=== PATIENT | male | born 1975 | race Caucasian/White ===

== ENCOUNTER 2016-11-04 07:53 | Day surgery (SDC) | payer BC ==
[2016-10-27 14:55] VITALS: BMI 23.7
--- NOTE | 2016-11-03 14:30 | HP ---
DATE OF ADMISSION: 11/04/2016 Vipul Rodriguez is a 41-year-old patient seen with progressive left knee pain. After having treatment options discussed, he elected to proceed with left knee arthroscopy. Consent was obtained. His past medical history is osteoarthritis. Past surgical history is left knee arthroscopy, right shoulder arthroscopy, herniorrhaphy. DAILY MEDICATIONS: Aleve. ALLERGIES: None known. SOCIAL HISTORY: Patient denies tobacco use. Physical evaluation of the left knee: His range of motion is -3/4 to 95. Tenderness along the medial and lateral joint lines. Positive medial Paulo's. There is pain on patellofemoral compression. Crepitus along the medial and patellofemoral compartment with compartments with range of motion. Ligaments stable. Hip rotation without pain. Distal neurovascular exam is intact. Radiographs of the left knee revealed moderate to severe medial and moderate patellofemoral compartment osteoarthritis. IMPRESSION: 1. Internal derangement of the left knee with meniscal tear. 2. Left knee osteoarthritis. PLAN: Left knee arthroscopy with partial meniscectomy and debridement.
[~2016-11-04 07:53] MED LIST: DEXAMETHASONE SOD PHOSPHATE 10 MG/ML 1 ML VIAL IV ONE; HYDROmorphone 1 MG/ML 1 ML SYRINGE IVP PRN; LACTATED RINGERS 1,000 ML IV SCH; MIDAZOLAM 2 MG/2 ML VIAL IV PRN; ONDANSETRON 4 MG/2 ML VIAL IVP ONE
[2016-11-04] MEDS ORDERED: LIDOCAINE 1% 20 ML VIAL (10MG/ML) FOR IV START INTRADERMA ONE (08:21)
[2016-11-04] MEDS ORDERED: ceFAZolin 1,000 MG VIAL ONE (09:04)
[2016-11-04] MEDS ORDERED: PHENYLEPHRINE-0.9% NACL SYG 1 MG/10 ML SYRINGE ONE (09:04)
[2016-11-04] MEDS ORDERED: SODIUM CHLORIDE 0.9% 100 ML BAG ONE (09:04)
[2016-11-04] MEDS ORDERED: PROPOFOL 10 MG/ML 20 ML VIAL IV ONE (09:04)
[2016-11-04] MEDS ORDERED: LIDOCAINE 1% INJ 10MG/ML (20 ML MDV) ONE (09:04)
[2016-11-04] MEDS ORDERED: MIDAZOLAM 2 MG/2 ML VIAL ONE (09:04)
[2016-11-04] MEDS ORDERED: SUCCINYLCHOLINE CHLORIDE 100 MG/5 ML SYR IV ONE (09:04)
[2016-11-04] MEDS ORDERED: fentaNYL (PF) 50 MCG/ML 2 ML AMP ONE (09:04)
[2016-11-04] MEDS: ceFAZolin 2 GM in SODIUM CHLORIDE 0.9% 100 ML IVPB ONE ×2 (09:10→09:15)
[2016-11-04] MEDS ORDERED: BUPIVACAIN-EPI 0.25%-1:200,000 30 ML VIAL INTRAARTIC ONE ×2 (09:32→09:55)
--- NOTE | 2016-11-04 10:11 | P.OP ---
Date of Procedure: 11/04/16 Preoperative Diagnosis: Internal derangement left knee Postoperative Diagnosis: 1. Tear medial lateral meniscus left knee 2. Grade 3/4 chondromalacia medial femoral condyle left knee 3. Grade 3/4 chondromalacia lateral femoral condyle left knee 4. Grade 4 chondromalacia patellofemoral compartment left knee 5. Reactive synovitis medial, lateral and suprapatellar compartments left knee Procedure(s) Performed: 1. Arthroscopic partial medial and lateral meniscectomy left knee 2. Arthroscopic chondroplasty medial femoral condyle left knee 3. Arthroscopic chondroplasty lateral femoral condyle left knee 4. Arthroscopic chondroplasty patellofemoral compartment left knee 5. Arthroscopic partial synovectomy medial, lateral and suprapatellar compartments left knee Anesthesia: RUSLANA Surgeon: Alvarado Mayen Estimated Blood Loss (ml): 15 Pathology: none sent Condition: stable Disposition: PACU Indications for Procedure: 41-year-old patient seen with progressive left knee pain. After having treatment options discussed, he elected to proceed with left knee arthroscopy. Operative Findings: See description of procedure Description of Procedure: Patient was taken to the operative suite. Patient underwent a general anesthetic by the department of anesthesia. Patient was given preoperative antibiotics. The left lower extremity was placed in a well-padded arthroscopic leg kelly. The left leg was prepped and draped in the normal sterile orthopedic fashion. A lateral parapatellar and suprapatellar incision was made. Trochars were inserted. Arthroscopy was initiated. Suprapatellar pouch revealed diffuse thick synovitis. The patellofemoral joint appeared to articulate congruently. There was grade 4 chondromalacia of both the femoral sulcus/ trochlea as well as the medial lateral facets of the patella. There osteochondral tears present as well.. The scope was guided into the medial gutter. No loose bodies or plica identified The scope was then guided into the medial compartment. A medial parapatellar incision was made. Trocar inserted followed by probe. Complex tear involving posterior horn and midbody of the medial meniscus. There was grade 3-4 chondromalacia changes the medial femoral condyle with osteochondral tears present. There were grade 3, changes of the tibial plateau present. Reactive synovitis is present. A partial medial meniscectomy was performed on a stable tissue. I performed a chondroplasty of the medial femoral condyle and tibial plateau down to stable tissue. I performed a partial synovectomy. The rigid residual meniscus and osteochondral surface appeared stable. We again noted upwards of grade 4 chondromalacia involving the medial compartment. Scope and probe were then guided into the intercondylar notch. I had a difficult time identifying the anterior cruciate ligament which I believe was absent. The posterior cruciate ligament was present but diminutive.. The scope and probe were then guided into lateral compartment. There was a radial tearing of the posterior horn and midbody lateral meniscus. There were grade 3-4, changes lateral femoral condyle. Grade 3, changes lateral tibial plateau. No loose bodies. Synovitis anteriorly. Partial lateral meniscectomy performed on a stable tissue. Chondroplasty lateral femoral condyle and tibial plateau down to stable tissue. Partial synovectomy performed on a stable tissue. The residual osteochondral surface and meniscus was found stable with again upwards of grade 3/4 chondromalacia of the lateral compartment. The scope was in guided back into the suprapatellar compartment. Motorize shaver was introduced and super patellar compartment. I debrided some piecemeal fragments of meniscus. I performed a chondroplasty of the patellofemoral joint. We again noted grade 4 chondromalacia changes of both sides. The residual surfaces were partial synovectomy. Shaver was removed. I took one more look on the entire knee, no residual debris. Instruments were now removed from the joint. The joint was infiltrated with .25% Marcaine. Steri-Strips were applied to the portal sites. Sterile dressings were applied. The patient was placed into a HELEN hose. No tourniquet was utilized. The patient was awakened, transferred to a bed and taken to recovery stable satisfactory condition.
[2016-11-04] MEDS: MEPERIDINE 50 MG/ML SYRINGE IVP ONE ×3 (10:18→11:30)
[2016-11-04 10:28] VITALS: TEMP 96.9
[2016-11-04 11:49] VITALS: RESP 18
[2016-11-04 12:16] VITALS: BP 105/73; PULSE 85
== END 2016-11-04 12:46 | disposition home or self-care (01) ==
LOC: OR 07:53
PROVIDERS: ATTEND Orthopaedic Surgery
DX: S83.242A Other tear of medial meniscus, current injury, left knee, initial encounter (principal); S83.282A Other tear of lateral meniscus, current injury, left knee, initial encounter; X58.XXXA Exposure to other specified factors, initial encounter; M22.42 Chondromalacia patellae, left knee; M17.12 Unilateral primary osteoarthritis, left knee; M65.862 Other synovitis and tenosynovitis, left lower leg; Z87.891 Personal history of nicotine dependence
CPT/HCPCS: 29880; J2250; J1100; J2175; J2405; J0690; J2001; J3010; J2370; J0330; J2704

== ENCOUNTER → 2017-03-16 | Outpatient (CLI) | payer BC ==
[2017-03-16 13:36] LABS: EKG EKG PERFORMED
[2017-03-16 13:46] LABS: Basophils # (A) 0.1 k/uL (0-0.2); Basophils % (A) 1 %; CH 29.6; CHCM 34.1; Eosinophils # (A) 0.2 k/uL (0-0.7); Eosinophils % (A) 3 %; HCT 38.2 % (39.0-53.0); HDW 2.63; HGB 13.3 gm/dL (13.0-17.5); Luc % (Auto) 2; Lymphocytes # (A) 1.9 k/uL (1.0-4.8); Lymphocytes % (A) 40 %; MCH 30.4 pg (25.0-35.0); MCHC 34.9 g/dL (31.0-37.0); MCV 87.2 fL (80.0-100.0); Mean Platelet Volume 7.4; Monocytes # (A) 0.3 k/uL (0-1.0); Monocytes % (A) 7 %; Neutrophils # (A) 2.2 k/uL (1.3-7.7); Neutrophils % (A) 47 %; RBC 4.38 m/uL (4.30-5.90); RDW 13.7 % (11.5-15.5); WBC 4.6 k/uL (3.8-10.6); WBC (Perox) 4.54
[2017-03-16 13:54] LABS: Partial Thromboplastin Time 26.4 sec (22.0-30.0); Prothrombin Time 10.1 sec (9.0-12.0)
[2017-03-16 14:03] LABS: Anion Gap 11 mmol/L; Carbon Dioxide 24 mmol/L (22-30); Chloride 104 mmol/L (98-107); Potassium 3.9 mmol/L (3.5-5.1); Sodium 139 mmol/L (137-145)
== END | disposition home or self-care (01) ==
LOC: LABPAT 13:21
PROVIDERS: ATTEND Orthopaedic Surgery
DX: Z01.812 Encounter for preprocedural laboratory examination (principal)
CPT/HCPCS: 80051; 85025; 85610; 85730; 87070; 93005

== ENCOUNTER 2017-03-24 06:02 | Inpatient (IN) | payer BC ==
[2017-03-16 09:06] VITALS: BMI 26.4
--- NOTE | 2017-03-23 19:29 | HP ---
DATE OF ADMISSION: 03/24/2017 Vipul Rodriguez is a 41-year-old patient seen with symptomatic left knee osteoarthritis. After having options regarding treatment discussed with him, he elected to proceed with left total knee arthroplasty. Consent regarding the procedure was obtained. His past medical history is noncontributory. PAST SURGICAL HISTORY: 1. Left knee arthroscopy. 2. Right shoulder arthroscopy. 3. Herniorrhaphy. DAILY MEDICATIONS: Aleve. ALLERGIES: NONE REPORTED. SOCIAL HISTORY: Patient denies tobacco use. PHYSICAL EVALUATION OF THE LEFT KNEE: His range of motion is negative 6 to 70 degrees. Tenderness along the medial and lateral joint lines. Crepitus, medial and patellofemoral compartments with range of motion. Ligaments stable. Hip rotation without pain. Distal neurovascular exam is intact. Left knee radiographs revealed severe osteoarthritis. IMPRESSION: Left knee osteoarthritis. PLAN: Left total knee arthroplasty.
[~2017-03-24 06:02] MED LIST changes: +ACETAMINOPHEN TAB 500 MG TAB PO ONE; -HYDROmorphone 1 MG/ML 1 ML SYRINGE IVP PRN; -LACTATED RINGERS 1,000 ML IV SCH; +LIDOCAINE 1% 20 ML VIAL (10MG/ML) FOR IV START INTRADERMA PRN; +MELOXICAM 7.5 MG TAB PO ONE; +SCOPOLAMINE 1.5MG/72HR PATCH TRANSDERM ONE; +TRANEXAMIC ACID 1,000 MG in SODIUM CHLORIDE 0.9% 100 ML IVPB ONE; +ceFAZolin 2 GM in SODIUM CHLORIDE 0.9% 100 ML IVPB ONE
[2017-03-24] MEDS ORDERED: LIDOCAINE 1% 20 ML VIAL (10MG/ML) FOR IV START INTRADERMA ONE (06:42)
[2017-03-24] MEDS: LACTATED RINGERS 1,000 ML IV SCH ×3 (06:42→13:53)
[2017-03-24] MEDS ORDERED: TRANEXAMIC ACID 1,000 MG/10 ML VIAL ONE (07:28)
[2017-03-24] MEDS ORDERED: PHENYLEPHRINE-0.9% NACL SYG 1 MG/10 ML SYRINGE ONE (07:28)
[2017-03-24] MEDS ORDERED: PROPOFOL 10 MG/ML 20 ML VIAL IV ONE (07:28)
[2017-03-24] MEDS ORDERED: SODIUM CHLORIDE 0.9% 100 ML BAG ONE (07:28)
[2017-03-24] MEDS ORDERED: MIDAZOLAM 2 MG/2 ML VIAL ONE (07:28)
[2017-03-24] MEDS ORDERED: ePHEDrine 50 MG/ML 1 ML AMP ONE (07:28)
[2017-03-24] MEDS: ROPIVACAINE 246.25 MG, EPINEPHrine 0.5 MG, KETOROLAC 30 MG, cloNIDine HCL/PF 80 MCG, WA... MISCELLANE ONE ×10 (08:02→08:50)
[2017-03-24] MEDS ORDERED: ceFAZolin 3,000 MG in SODIUM CHLORIDE 0.9% IRRIGATIO 3,000 ML IRRIGATION ONE (08:07)
[2017-03-24] MEDS ORDERED: LACTATED RINGERS 1,000 ML IV ONE ×2 (08:15→09:29)
[2017-03-24] MEDS ORDERED: ONDANSETRON 4 MG/2 ML VIAL IVP PRN (09:57)
[2017-03-24] MEDS ORDERED: HYDROmorphone 1 MG/ML 1 ML SYRINGE IVP PRN ×2 (09:57)
[2017-03-24] MEDS ORDERED: NALOXONE 0.4 MG/ML 1 ML VIAL IV PRN (09:57)
[2017-03-24] MEDS ORDERED: HYDROcodone/APAP 7.5-325MG 1 EACH TAB PO PRN (09:57)
--- NOTE | 2017-03-24 09:57 | P.OP ---
Date of Procedure: 03/24/17 Preoperative Diagnosis: Left knee osteoarthritis Postoperative Diagnosis: Left knee osteoarthritis Procedure(s) Performed: Left total knee arthroplasty Implants: 1. Stephany persona size 11 left cemented cruciate retaining femoral component 2. Stephany persona size G left cemented tibial component 3. Stephany persona 10 mm medial congruent left polyethylene tibial insert 4. Stephany persona 38 mm all polyethylene cemented patella Anesthesia: regional (Adductor canal block), local, spinal Surgeon: Alvarado Mayen Utility Mechanic #1: Balta Jacobo Estimated Blood Loss (ml): 480 Pathology: other (Bone) Condition: stable Disposition: PACU Indications for Procedure: 41-year-old patient seen with progressive left knee pain consistent was symptomatically osteoarthritis. He had failed reasonable conservative treatment. We discussed options and he elected to proceed with left total knee arthroplasty. Consent was obtained. Operative Findings: See description of procedure Description of Procedure: Patient was taken to the operative suite after having undergone an adductor canal block by the department of anesthesia. Patient underwent a spinal anesthetic by the department of anesthesia. Patient was given preoperative IV intake antibiotics and TXA. A well-padded tourniquet was placed about the left lower extremity. The lower extremity was then prepped and draped in the normal sterile orthopedic fashion. A standard anterior incision was made sharply through skin. Dissection was taken down through the subcutaneous soft tissues down to the extensor mechanism. A medial arthrotomy was performed, patella was everted and knee was flexed. There was advanced osteoarthritis noted. A proximal tibial cutting guide was positioned. Proximal tibial cut was made. A distal intramedullary femoral cutting guide was positioned, distal femoral cut made. We placed the appropriate sizing guide and selected the appropriate size. A distal 4-in-1 femoral cutting block was positioned, distal femoral cuts were made. We now placed a trial femoral component into position, along with an appropriate size tibial tray and insert. At this point secondary to the bleeding from the bone the tourniquet was insufflated to 350. We now took the knee through range of motion and had full extension good flexion and good overall soft tissue balance noted. The patella was everted and a flush cut made with patellar quad tendon. We templated the patella, appropriate drill holes were made. An appropriate trial patella was positioned, knee was taken through full range of motion with the patella tracking very nicely. The trial patella was removed. Drill holes were made through the femoral component. All trial components were removed after marking off the appropriate rotation of the tibia. Retractors were now positioned along the proximal tibia. An appropriate keel punch was made with the appropriate size tibial guide. At this point appropriate size implants were chosen and opened. The joint was irrigated copiously with pulse lavage mechanical irrigation. We mixed antibiotic methylmethacrylate. Once the methyl methacrylate was ready, the tibial component was cemented into place removing any excess methylmethacrylate. The femoral component was cemented into place removing the removing any excess methylmethacrylate. We then inserted the appropriate size polyethylene tibial insert. We made sure that it was locked into position. We took the knee into full extension, and then back in a flexion making sure we had removed any excess methylmethacrylate. The patellar component was then cemented down and secured with clamp. Excess methylmethacrylate removed. We kept the knee in full extension, patellar clamp in position until methylmethacrylate had hardened. Once it had hardened the patellar clamp was removed. The knee was taken through full range of motion. The patella tracked nicely. There was good soft tissue balancing. The tourniquet was now released. Additional hemostasis was achieved via electrocautery. A second gram of TXA was given. The wound was irrigated with pulse lavage mechanical irrigation. The extensor mechanism was repaired with Vicryl. We checked the repair with range of motion and it was stable. The subcutaneous soft tissues were repaired with Vicryl in layers. The skin was approximated with pernio/ Dermabond. Sterile dressings were applied followed by loose web roll and Roni bandage. The patient was transferred to a bed, and taken to recovery in stable and satisfactory condition. Christos SANCHES assisted with the procedure.
[2017-03-24] MEDS ORDERED: MEPERIDINE 50 MG/ML SYRINGE IVP ONE (10:10)
--- NOTE | 2017-03-24 10:51 | XR ---
EXAMINATION TYPE: XR knee limited LT DATE OF EXAM: 03/24/2017 10:42 AM COMPARISON: NONE HISTORY: Postsurgical evaluation TECHNIQUE: 2 view left knee FINDINGS: Tibial and femoral components of in place. Postsurgical changes are present. No acute fract ures are evident. IMPRESSION: 1. No acute fractures post knee replacement
[2017-03-24] MEDS ORDERED: ROPIVACAINE 1,100 MG, SODIUM CHLORIDE 0.9% 330 ML MISCELLANE PRN ×2 (11:18)
--- NOTE | 2017-03-24 11:21 | P.ONQ ---
Anesthesiology Proc Note - PNB - Peripheral Nerve Block Performed Left Adductor Canal Infusion Time Out Performed: Yes Procedure Start Time: 11:06 Procedure Stop Time: 11:15 Indication: Acute Post-Operative Pain, Requested by physician Sedation Type: Sedate with meaningful contact maintained Preparation: Sterile Dressing Position: Supine Needle Size: 100mm (4") Needle Gauge: 18 Technique: Ultrasound Injectate: 0.5% Ropivacaine (see comment for volume) (.5% ropi 15cc) Blood Aspirated: No Pain Paresthesia on Injection Noted: No Resistance on Injection: Normal Events: Uneventful and Well Tolerated
[2017-03-24] MEDS: HYDROmorphone 1 MG/ML 1 ML SYRINGE IVP PRN ×4 (11:41→21:54)
[2017-03-24] MEDS: traMADol 50 MG TAB PO SCH ×3 (13:59→23:05)
[2017-03-24] MEDS: ceFAZolin 2 GM in SODIUM CHLORIDE 0.9% 100 ML IVPB SCH ×2 (15:29→23:04)
[2017-03-24] MEDS: ENOXAPARIN 30 MG/0.3 ML SYRINGE SQ SCH (20:37)
[2017-03-24] MEDS: SENNOSIDES-DOCUSATE SODIUM 1 EACH TAB PO SCH (20:40)
[2017-03-25] MEDS: LACTATED RINGERS 1,000 ML IV SCH ×5 (02:07→18:17)
[2017-03-25 07:38] LABS: Basophils % (A) 0 %; CH 29.4; CHCM 33.4; Eosinophils % (A) 0 %; HCT 29.8 % (39.0-53.0); Luc # (Auto) 0.12; Luc % (Auto) 1; Lymphocytes # (A) 1.2 k/uL (1.0-4.8); Lymphocytes % (A) 12 %; MCH 29.6 pg (25.0-35.0); MCHC 33.4 g/dL (31.0-37.0); MCV 88.5 fL (80.0-100.0); Mean Platelet Volume 7.7; Monocytes # (A) 0.7 k/uL (0-1.0); Monocytes % (A) 7 %; Neutrophils # (A) 7.5 k/uL (1.3-7.7); Neutrophils % (A) 79 %; RBC 3.37 m/uL (4.30-5.90); RDW 13.6 % (11.5-15.5); WBC 9.5 k/uL (3.8-10.6)
--- NOTE | 2017-03-25 08:06 | P.DS ---
Providers Date of admission: 03/24/17 06:02 Expected date of discharge: 03/26/17 Attending physician: Alvarado Breen Consults: 03/24/17 09:57 Consult Physician Routine Consulting Provider: Zeyad Avilez Reason/Comments: Medical management Do you want consulting provider notified?: Yes Primary care physician: Zeyad Avilez [facility] Course: Date of admission: 03/24/2017 Date of discharge: 03/26/2017 Admission diagnosis: Status post left total knee arthroplasty Discharge diagnosis: Same Attending physician: Dr. Alvarado breen Surgical procedures: Left total knee arthroplasty Brief history: Patient is a 41-year-old male with a history of progressive primary left knee osteoarthritis. At this point patient has failed conservative treatment measures and has opted to proceed with a elective left total knee arthroplasty. Hospital course: Details of patient's surgery can be found in operative report. Patient tolerated the procedure well and was subsequently transported to orthopedic floor. Patient's orthopeidc and medical care was provided daily. Patient had daily laboratory tests performed for evaluation of overall blood counts. Patient had daily physical therapy to include strengthening range of motion as well as education with walker ambulation. Patient had daily CPM usage as part of their physical therapy program. Patient was treated with Lovenox for their postoperative DVT prophylaxis during their inpatient stay. Patient was noted to have a relatively uneventful postoperative course. Patient reported satisfactory pain control with oral pain medications by postoperative day 0. Patient showed satisfactory progress with physical therapy. Patient moved steadily through the program and had no difficulty meeting the goals by postoperative day 2. Given patient's otherwise satisfactory course and having met physical therapy goals, plan is to discharge patient home on postoperative day 2. Discharge condition/disposition: Patient will be discharged home in stable condition. Discharge medications: Instructions are given on resumption of patient's normal daily medications per primary care recommendation, in addition patient will be prescribed Hallock 7.5 mg/325 mg, tramadol 50 mg, Colace 100 mg, Pepcid 20 mg, aspirin 325 mg. Discharge instructions: 1. Wound care and infection precautions, keep incision dry and covered while showering, no lotions, creams, moisturizers. No soaking, tubs, pools, hottubs. Do not scrub over the incision. 2. Weight-bear as tolerated with walker / cane until follow-up. 3. Ice and elevate when necessary. Do not exceed 20 minutes per hour with ice pack. 4. Utilize compression sleeve until seen at first follow up appointment. 5. Visiting nursing care. 6. Home physical therapy including home CPM. 7. Pain meds and anticoagulants per prescription. 8. Pain medication has potential to cause constipation. Increase oral fluid and fiber intake. Contact primary care provider if you have not had a bowel movement within 48 hours after discharge 9. No anti-inflammatory medication until discussed at first post operative visit, this including Motrin, Aleve, Mobic, Diclofenac. 10. Follow up in office at 2 weeks postop with Christos Jacobo PA-C 11. Follow up with your primary care doctor 7-10 days after discharge. 12. Contact [facility] with any questions, . Procedures: Left total knee arthroplasty Patient Condition at Discharge: Good Plan - Discharge Summary New Discharge Prescriptions: Aspirin 325 mg PO BID #60 tab Docusate [Colace] 100 mg PO DAILY #30 capsule Famotidine [Pepcid] 20 mg PO DAILY #30 tablet HYDROcodone/APAP 7.5-325MG [Hallock 7.5] 1 - 2 each PO Q6HR PRN #90 tab PRN Reason: Pain traMADol HCl [Ultram] 50 mg PO Q6H PRN #40 tab PRN Reason: Pain Discharge Medication List Aspirin 325 mg PO BID #60 tab 03/25/17 [Rx] Docusate [Colace] 100 mg PO DAILY #30 capsule 03/25/17 [Rx] Famotidine [Pepcid] 20 mg PO DAILY #30 tablet 03/25/17 [Rx] HYDROcodone/APAP 7.5-325MG [Hallock 7.5] 1 - 2 each PO Q6HR PRN #90 tab 03/25/17 [ Rx] traMADol HCl [Ultram] 50 mg PO Q6H PRN #40 tab 03/25/17 [Rx] Follow up Appointment(s)/Referral(s): [facility], [NON-STAFF] - 1 Week Balta Jacobo PAC [PHYSICIAN CURRENCY EXCHANGE SPECIALIST] - 04/13/17 1:30 pm Activity/Diet/Wound Care/Special Instructions: Orthopedic Discharge Instructions: 1. Wound care and infection precautions, keep incision dry and covered while showering, no lotions, creams, moisturizers. No soaking, pools, hot tubs. Do not scrub over incision. 2. Weight-bear as tolerated with walker / cane until follow-up. 3. Ice and elevate when necessary. Do not exceed 20 minutes per hour with ice pack. 4. Utilize compression sleeve until seen at first follow up appointment. 5. Visiting nursing care. 6. Home physical therapy including home CPM. 7. Pain meds and anticoagulants per prescription. 8. Pain medication has potential to cause constipation. Increase oral fluid and fiber intake. Contact primary care provider if you have not had a bowel movement within 48 hours after discharge. 9. No anti-inflammatory medication until discussed at first post operative visit, this including Motrin, Aleve, Mobic, Diclofenac. 10. Follow up in office at 2 weeks postop with Christos Jacobo PA-C 11. Follow up with your primary care doctor 7-10 days after discharge. 12. Contact [facility] with any questions, . Discharge Disposition: HOME WITH HOME HEALTH SERVICES
[2017-03-25] MEDS: MELOXICAM 7.5 MG TAB PO SCH (08:17)
[2017-03-25] MEDS: ENOXAPARIN 30 MG/0.3 ML SYRINGE SQ SCH ×2 (08:17→20:53)
[2017-03-25] MEDS: traMADol 50 MG TAB PO SCH ×4 (08:19→20:52)
[2017-03-25] MEDS: MULTIVITAMINS, THERA 1 EACH TAB PO SCH (08:19)
[2017-03-25] MEDS: FAMOTIDINE 20 MG TAB PO SCH (08:21)
--- NOTE | 2017-03-25 09:56 | P.PN ---
Subjective Principal diagnosis: status post left total knee arthroplasty Patient is seen today resting in his hospital chair, he appears to be in no acute distress. Patient did ambulate with therapy today, he notes a little bit of soreness. Urinary catheters been discontinued. He denies any chest pain, shortness of breath, abdominal discomfort, fever or chills. Objective - Vital Signs Vital signs: Vital Signs Temp 98.8 F 03/25/17 07:00 Pulse 106 H 03/25/17 07:00 Resp 12 03/25/17 07:00 BP 111/62 03/25/17 07:00 Pulse Ox 92 L 03/25/17 07:00 Intake & Output 03/24/17 03/25/17 03/25/17 18:59 06:59 18:59 Intake Total 3451 Output Total 2430 1900 Balance 1021 -1900 Intake: IV 3051 Intake, IV Titration 400 Amount Lactated Ringers 1,000 ml 400 @ 100 mls/hr IV .Q10H KENYATTA Rx#:[id number] Output: Urine 1950 1900 Uretheral (Graham) 1900 Estimated Blood Loss 480 Other: Voiding Method Indwelling Catheter Indwelling Catheter - Exam Left lower extremity: Incision is clean, dry, and intact. Minimal soft tissue swelling present around the knee. Calf is soft, no tenderness with palpation. Plantar flexion, dorsiflexion, EHL, FHL are intact. Cap refills less than 2 seconds. Sensory exam light touch throughout the extremity is intact. - Labs CBC & Chem 7: 03/25/17 06:38 Labs: Abnormal Lab Results - Last 24 Hours (Table) 03/25/17 Range/Units 06:38 RBC 3.37 L (4.30-5.90) m/uL Hgb 10.0 L D (13.0-17.5) gm/dL Hct 29.8 L (39.0-53.0) % Assessment and Plan Plan: Assessment: 1. Postop day #1 status post left total knee arthroplasty Plan: 1. Pain control, will continue use of oral medication 2. GI and DVT prophylaxis, continue Lovenox at this time, we'll discharge her to aspirin 325 mg twice a day 3. Continue work with PT and use of CPM 4. Ice and elevate/daily dressing changes 5. Medical recommendations 6. Encourage incentive spirometer 7. Discharge planning: Patient will be likely discharged home tomorrow Time with Patient: Less than 30
[2017-03-25] MEDS: hydrOXYzine PAMOATE 25 MG CAP PO PRN (10:07)
[2017-03-25] MEDS: HYDROcodone/APAP 7.5-325MG 1 EACH TAB PO PRN ×3 (10:07→22:27)
--- NOTE | 2017-03-25 12:07 | P.PN ---
Progress Note - Text 03/25 711am 41 yr old male s/p tkr by Dr breen. pt has on-q pump for post op pain control.vas of 4 this morning.
--- NOTE | 2017-03-25 12:48 | P.CONS ---
History of Present Illness - Reason for Consult Consult date: 03/24/17 Medical management Requesting physician: Alvarado Mayen - Chief Complaint Left knee pain - History of Present Illness Patient is a 41-year-old male, patient of Dr. Avilez in the outpatient setting, with medical history significant for left knee osteoarthritis not responding to medical management. Patient presented to the hospital for elective left total knee arthroplasty on 03/24/[address] Mayen. Patient tolerated procedure well. Patient is evaluated on the surgical floor he is currently postop day #1. Patient is doing well. Denies chills, fevers, nausea, vomiting, shortness of breath, chest pain, abdominal pain, numbness or tingling. Patient has been up ambulating. Patient is tolerating diet. Indwelling Graham catheter was removed this morning and patient is voiding. Left knee incisional pain controlled with current pain regimen. Past Medical History Past Medical History: Osteoarthritis (OA) Additional Past Medical History / Comment(s): Lt knee torn meniscus History of Any Multi-Drug Resistant Organisms: None Reported Past Surgical History: Hernia Repair, Orthopedic Surgery Additional Past Surgical History / Comment(s): Lt knee repair Past Anesthesia/Blood Transfusion Reactions: No Reported Reaction Additional Past Anesthesia/Blood Transfusion Reaction / Comm: no hx blood transfusion Past Psychological History: No Psychological Hx Reported Smoking Status: Former smoker Past Alcohol Use History: Rare Additional Past Alcohol Use History / Comment(s): started smoking approx 2008, quit 09/2016 smoked on and off <1ppd Past Drug Use History: None Reported - Past Family History Father Family Medical History: No Reported History Mother Family Medical History: No Reported History Medications and Allergies Allergies Allergy/AdvReac Type Severity Reaction Status Date / Time No Known Allergies Allergy Verified 03/24/17 06:12 Physical Exam Vitals: Vital Signs Temp Pulse Resp BP Pulse Ox 03/25/17 08:00 106 H 12 03/25/17 07:00 98.8 F 106 H 12 111/62 92 L 03/25/17 01:30 17 95 03/25/17 01:11 99.1 F 102 H 16 107/65 91 L 03/24/17 19:30 97.5 F L 98 17 111/61 95 03/24/17 14:15 77 113/68 94 L 03/24/17 14:00 83 108/78 97 03/24/17 13:45 86 116/83 03/24/17 13:30 88 112/80 03/24/17 13:15 100 120/70 03/24/17 13:00 76 116/74 97 03/24/17 12:45 78 109/72 97 03/24/17 12:30 89 117/76 94 L 03/24/17 12:15 85 100/71 Intake and Output 03/24/17 03/25/17 03/25/17 22:59 06:59 14:59 Output Total 400 4200 Balance -400 -4200 Output: Urine 400 4200 Uretheral (Graham) 3800 Other: Voiding Method Indwelling Catheter Indwelling Catheter GENERAL: Pt awake and alert, well-appearing, well-nourished, and in no acute distress. HEAD: Atraumatic, normocephalic. EYES: Pupils equal, round, and reactive to light, sclera anicteric, conjunctiva are normal. ENT: Moist mucous membranes. NECK: Supple without lymphadenopathy or JVD. Neck midline. LUNGS: Breath sounds clear to auscultation bilaterally. No wheezes, rales, or rhonchi. HEART: Heart S1, S2, no S3 or S4. Regular rate and rhythm. No murmurs, rubs or gallops. ABDOMEN: Soft, nontender, nondistended, normoactive bowel sounds. No guarding, no rebound. EXTREMITIES: Palpable peripheral pulses. Minimal left knee edema. No calf tenderness. Left knee dressing dry and intact. NEUROLOGICAL: Pt oriented x 3. No focal deficits noted. Strength and sensation grossly intact. PSYCH: Normal mood, normal affect. SKIN: Warm, dry. Results CBC & Chem 7: 03/25/17 06:38 Labs: Abnormal Lab Results - Last 24 Hours (Table) 03/25/17 Range/Units 06:38 RBC 3.37 L (4.30-5.90) m/uL Hgb 10.0 L D (13.0-17.5) gm/dL Hct 29.8 L (39.0-53.0) % Assessment and Plan Plan: Impression: 1. Left knee osteoarthritis status post total left knee arthroplasty. 2. Anemia suspected secondary to IV dilution and minimal blood loss from surgery. 3. History of nicotine dependence. Plan: Continue surgical management by orthopedic service including pain management, physical therapy, and wound management. Encourage incentive spirometry 10 times an hour while awake. Continue GI and DVT prophylaxis. Repeat CBC in a.m. The above impression and plan have been discussed and directed by Dr. Avilez. Denis CHEN acting as scribe for Dr. Avilez.
[2017-03-25 14:58] VITALS: RESP 16
[2017-03-25] MEDS: SENNOSIDES-DOCUSATE SODIUM 1 EACH TAB PO SCH (20:53)
[2017-03-26] MEDS: hydrOXYzine PAMOATE 25 MG CAP PO PRN (03:39)
[2017-03-26] MEDS: HYDROcodone/APAP 7.5-325MG 1 EACH TAB PO PRN ×3 (03:39→14:44)
[2017-03-26] MEDS: MELOXICAM 7.5 MG TAB PO SCH (08:01)
[2017-03-26] MEDS: MULTIVITAMINS, THERA 1 EACH TAB PO SCH (08:01)
[2017-03-26] MEDS: FAMOTIDINE 20 MG TAB PO SCH (08:01)
[2017-03-26] MEDS: ENOXAPARIN 30 MG/0.3 ML SYRINGE SQ SCH (08:01)
[2017-03-26] MEDS: traMADol 50 MG TAB PO SCH ×2 (08:12→12:26)
[2017-03-26 08:14] VITALS: BP 107/10; PULSE 110; TEMP 97.4
--- NOTE | 2017-03-26 10:58 | P.PN ---
Subjective Principal diagnosis: status post left total knee arthroplasty Patient is seen today resting in his hospital chair, he appears to be in no acute distress. He denies any chest pain, shortness of breath, abdominal discomfort, fever or chills. Objective - Vital Signs Vital signs: Vital Signs Temp 97.4 F L 03/26/17 07:00 Pulse 110 H 03/26/17 08:00 Resp 16 03/26/17 08:00 BP 107/10 03/26/17 07:00 Pulse Ox 94 L 03/26/17 07:48 Intake & Output 03/25/17 03/26/17 03/26/17 18:59 06:59 18:59 Intake Total 500 Output Total 6800 Balance -6800 500 Intake: Oral 500 Output: Urine 6800 Uretheral (Graham) 5700 Other: Voiding Method Urinal Toilet Toilet Urinal Urinal # Voids 2 2 - Exam Left lower extremity: Incision is clean, dry, and intact. Minimal soft tissue swelling present around the knee. Calf is soft, no tenderness with palpation. Plantar flexion, dorsiflexion, EHL, FHL are intact. Cap refills less than 2 seconds. Sensory exam light touch throughout the extremity is intact. - Labs CBC & Chem 7: 03/25/17 06:38 Assessment and Plan Plan: Assessment: 1. Postop day #2 status post left total knee arthroplasty Plan: 1. Pain control, will continue use of oral medication 2. GI and DVT prophylaxis, will discharge home on aspirin 325 mg twice a day 3. Continue work with PT and use of CPM 4. Ice and elevate/daily dressing changes 5. Medical recommendations 6. Encourage incentive spirometer 7. Discharge planning: Patient will be discharged home today Time with Patient: Less than 30
[2017-03-26 12:02] LABS: Basophils % (A) 1 %; CH 29.6; CHCM 33.2; Eosinophils # (A) 0.2 k/uL (0-0.7); Eosinophils % (A) 3 %; HCT 29.1 % (39.0-53.0); HDW 2.49; HGB 9.3 gm/dL (13.0-17.5); Luc # (Auto) 0.08; Luc % (Auto) 1; Lymphocytes # (A) 1.6 k/uL (1.0-4.8); Lymphocytes % (A) 25 %; MCH 28.6 pg (25.0-35.0); MCHC 32.1 g/dL (31.0-37.0); MCV 89.4 fL (80.0-100.0); Mean Platelet Volume 7.8; Monocytes # (A) 0.4 k/uL (0-1.0); Monocytes % (A) 7 %; Neutrophils # (A) 4.1 k/uL (1.3-7.7); Neutrophils % (A) 64 %; RBC 3.26 m/uL (4.30-5.90); RDW 13.5 % (11.5-15.5); WBC 6.4 k/uL (3.8-10.6); WBC (Perox) 6.37
[2017-03-26 12:15] LABS: Anion Gap 6 mmol/L; Blood Urea Nitrogen 18 mg/dL (9-20); Carbon Dioxide 26 mmol/L (22-30); Chloride 102 mmol/L (98-107); Glucose 90 mg/dL (74-99); Non-African American GFR(MDRD) >60 (>60 ml/min/1.73 sqM); Potassium 3.9 mmol/L (3.5-5.1); Sodium 134 mmol/L (137-145)
[2017-03-26 13:33] LABS: Appearance,Urine Clear (Clear); Bilirubin,Urine Negative (Negative); Glucose,Urine (UA) Negative (Negative); Ketones,Urine Negative (Negative); Leukocyte Esterase,Urine Negative (Negative); Nitrite,Urine Negative (Negative); PH, Urine 6.5 (5.0-8.0); Protein,Urine Negative (Negative); Specific Gravity,Urine 1.021 (1.001-1.035); UA Billing (MACRO vs. MICRO) CHEM
--- NOTE | 2017-03-27 10:31 | PN ---
DATE OF SERVICE: 03/26/2017 I am covering for Dr. Avilez. This 41-year-old gentleman who was admitted after a left knee arthroplasty is improving significantly. No chest pain or palpitations. No fever. On exam, pulse 120, blood pressure is 107/70, respirations 16, temperature 97.4, pulse ox 94% on room air. HEENT: Conjunctivae normal. NECK: No JVD. CARDIOVASCULAR: S1 and S2. LUNGS: Breath sounds diminished at the bases. No rhonchi, no crackles. ABDOMEN: Soft, nontender. EXTREMITIES: No edema. LABS: WBC 6, hemoglobin 9, sodium 134. ASSESSMENT: 1. Status post left total knee arthroplasty. 2. Anemia, possibly dilutional. 3. History of nicotine dependence. 4. Tachycardia. 5. Mild hyponatremia. RECOMMENDATIONS: Recommend to continue current medications, continue symptomatic treatment. Recommend the patient closely up closely with Dr. Avilez in the outpatient setting. Otherwise, repeat labs. Continue to monitor. The rest of the recommendations are as per Orthopedic Surgery. Further recommendations to follow.
== END 2017-03-26 15:48 | disposition home health service (06) | DRG 470 ==
LOC: 2ORMAIN 06:02 → 3SUR 09:34
PROVIDERS: ADMIT Orthopaedic Surgery; ATTEND Orthopaedic Surgery
PROC: 0SRD0J9 Replacement of Left Knee Joint with Synthetic Substitute, Cemented, Open Approach (ICD-10-PCS; principal; 2017-03-24 07:30)
DX: M17.12 Unilateral primary osteoarthritis, left knee (principal); E87.1 Hypo-osmolality and hyponatremia; R00.0 Tachycardia, unspecified; M23.8X2 Other internal derangements of left knee; D64.9 Anemia, unspecified; Z87.891 Personal history of nicotine dependence
CPT/HCPCS: 80048; 81003; 85025; 88300; 93005; 94760

== ENCOUNTER 2017-06-20 10:14 | Day surgery (SDC) | payer BC ==
[2017-06-17 08:41] VITALS: BMI 24.4
--- NOTE | 2017-06-20 07:21 | P.HPOR ---
History of Present Illness H&P Date: 06/20/17 Chief Complaint: Left knee stiffness 42-year-old patient seen with persistent left knee stiffness/adhesions after previously under having on total knee arthroplasty. We discussed treatment options. Manipulation under anesthesia was reviewed and patient was agreeable, consent was obtained. Past Medical History Past Medical History: Osteoarthritis (OA) Additional Past Medical History / Comment(s): Lt knee torn meniscus History of Any Multi-Drug Resistant Organisms: None Reported Past Surgical History: Hernia Repair, Orthopedic Surgery Additional Past Surgical History / Comment(s): Lt knee repair,Lt total knee replacement 5-2016 Past Anesthesia/Blood Transfusion Reactions: No Reported Reaction Additional Past Anesthesia/Blood Transfusion Reaction / Comment(s): no hx blood transfusion Smoking Status: Former smoker - Past Family History Father Family Medical History: No Reported History Mother Family Medical History: No Reported History Medications and Allergies Home Medications Medication Instructions Recorded Confirmed Type Famotidine [Pepcid] 20 mg PO DAILY PRN 06/17/17 06/17/17 History Allergies Allergy/AdvReac Type Severity Reaction Status Date / Time No Known Allergies Allergy Verified 06/17/17 08:37 Physical Examination Osteopathic Statement: *. No significant issues noted on an osteopathic structural exam other than those noted in the History and Physical/Consult. Left knee incision well-healed. Range of motion -25 to 75. Ligaments are stable. Weakness along the quadriceps area. Homans and Brian negative. Distal neurovascular exam is intact. Results X-ray left knee: stable total knee arthroplasty Assessment and Plan Plan: Assessment: Left knee adhesions status post total knee arthroplasty Plan: Manipulation under anesthesia left knee with steroid injection
[~2017-06-20 10:14] MED LIST changes: -ACETAMINOPHEN TAB 500 MG TAB PO ONE; -DEXAMETHASONE SOD PHOSPHATE 10 MG/ML 1 ML VIAL IV ONE; +LACTATED RINGERS 1,000 ML IV SCH; -MELOXICAM 7.5 MG TAB PO ONE; -MIDAZOLAM 2 MG/2 ML VIAL IV PRN; -ONDANSETRON 4 MG/2 ML VIAL IVP ONE; -SCOPOLAMINE 1.5MG/72HR PATCH TRANSDERM ONE; -TRANEXAMIC ACID 1,000 MG in SODIUM CHLORIDE 0.9% 100 ML IVPB ONE; -ceFAZolin 2 GM in SODIUM CHLORIDE 0.9% 100 ML IVPB ONE
[2017-06-20] MEDS ORDERED: DEXAMETHASONE SOD PHOS (MDV) 100 MG/10 ML VIAL IVP ONE (10:52)
[2017-06-20] MEDS ORDERED: fentaNYL (PF) 50 MCG/ML 2 ML AMP ONE (10:57)
[2017-06-20] MEDS ORDERED: MIDAZOLAM 2 MG/2 ML VIAL ONE (10:57)
[2017-06-20] MEDS ORDERED: PROPOFOL 10 MG/ML 20 ML VIAL IV ONE (10:57)
[2017-06-20] MEDS ORDERED: KETOROLAC 30 MG/ML 1 ML VIAL ONE (10:57)
--- NOTE | 2017-06-20 11:33 | P.OP ---
Date of Procedure: 06/20/17 Preoperative Diagnosis: Left knee adhesions Postoperative Diagnosis: Same Procedure(s) Performed: Manipulation under anesthesia left knee with steroid injection Implants: Anesthesia: MAC Surgeon: Alvarado Mayen Estimated Blood Loss (ml): 0 Pathology: none sent Condition: stable Disposition: PACU Indications for Procedure: 42-year-old patient seen with left knee adhesions. After treatment options were discussed he elected to proceed with manipulation under anesthesia left knee with steroid injection. Consent was obtained. Operative Findings: see description of procedure Description of Procedure: Patient was taken to a monitored area. The patient underwent IV sedation by the department of anesthesia. The patient received preoperative IV antibiotics. Once adequate anesthesia was noted I performed a manipulation of the left knee achieving near full extension and 130 of flexion. The superior lateral aspect was now prepped and draped in the normal sterile orthopedic fashion. I injected a solution of 1 mL Depo-Medrol and 3 mL quarter percent plain Marcaine. A sterile Band-Aid was applied. The patient was awakened having tolerated the procedure well.
[2017-06-20] MEDS ORDERED: methylPREDNISolone ACETATE 80 MG/ML 1 ML VIAL INTRAARTIC ONE (11:34)
[2017-06-20] MEDS ORDERED: BUPIVACAINE (PF) 0.25% 30 ML VIAL INTRAARTIC ONE (11:35)
[2017-06-20] MEDS ORDERED: HYDROmorphone 1 MG/ML 1 ML SYRINGE IVP ONE ×4 (11:38→11:57)
[2017-06-20 11:40] VITALS: TEMP 97.8
[2017-06-20] MEDS ORDERED: LACTATED RINGERS 1,000 ML IV ONE (11:58)
[2017-06-20 12:32] VITALS: RESP 16
[2017-06-20 13:15] VITALS: BP 113/71; PULSE 71
== END 2017-06-20 13:41 | disposition home or self-care (01) ==
LOC: OR 10:14
PROVIDERS: ATTEND Orthopaedic Surgery
DX: M23.8X2 Other internal derangements of left knee (principal); M25.662 Stiffness of left knee, not elsewhere classified; M76.9 Unspecified enthesopathy, lower limb, excluding foot; Z96.652 Presence of left artificial knee joint; M19.90 Unspecified osteoarthritis, unspecified site; K21.9 Gastro-esophageal reflux disease without esophagitis; Z87.891 Personal history of nicotine dependence
CPT/HCPCS: 27570; J2250; J1040; J3010; J1885; J1170; J1100; J2704

== ENCOUNTER → 2017-12-14 | Outpatient (CLI) | payer BC ==
--- NOTE | 2017-12-14 10:57 | XR ---
EXAMINATION TYPE: XR chest 2V DATE OF EXAM: 12/14/2017 COMPARISON: 11/09/2010. TECHNIQUE: PA and lateral views submitted. HISTORY: COPD FINDINGS: The lungs are clear and there is no pneumothorax, pleural effusion, or focal pneumonia. Hypertrophic change of the spine noted. No overt failure. IMPRESSION: 1. No acute process.
[2017-12-15 14:52] LABS: Alt. alternata IgE Class CLASS 0; Alternaria alternata IgE <0.35 kU/L (<0.35); Asperg. fumagatus IgE <0.35 kU/L (<0.35); Asperg. fumagatus IgE Class CLASS 0; Bermuda Grass IgE <0.35 kU/L (<0.35); Birch(Com.Silvr) IgE <0.35 kU/L (<0.35); Birch(Com.Silvr) IgE Class CLASS 0; Cat Epith & Dander IgE <0.35 kU/L (<0.35); Cat Epith & Dander IgE Class CLASS 0; Clad herbarum IgE <0.35 kU/L (<0.35); Cockroach IgE <0.35 kU/L (<0.35); Cottonwood IgE <0.35 kU/L (<0.35); Dermato. Pteronyssinus IgE <0.35 kU/L (<0.35); Dermato. farinae IgE <0.35 kU/L (<0.35); Dermato. farinae IgE Class CLASS 0; Dog Dander IgE <0.35 kU/L (<0.35); Elm IgE <0.35 kU/L (<0.35); Maple (Box Elder) IgE <0.35 kU/L (<0.35); Maple (Box Elder) IgE Class CLASS 0; Mountain Cedar IgE <0.35 kU/L (<0.35); Mountain Cedar IgE Class CLASS 0; Mouse Urine IgE Class CLASS 0; Nettle IgE <0.35 kU/L (<0.35); Nettle IgE Class CLASS 0; Oak IgE <0.35 kU/L (<0.35); Penicillium notatum IgE Class CLASS 0; Rough Marshelder IgE <0.35 kU/L (<0.35); Rough Marshelder IgE Class CLASS 0; Timothy Grass IgE <0.35 kU/L (<0.35); White Ash IgE Class CLASS 0
[2017-12-18 23:16] LABS: Alternaria Alternata IgG 7.5 mcg/mL (< 13.6); Aspergillus fumigatus IgG Not detected (Not detected); Aureobasidium pullulans IgG 9.5 mcg/mL (< 13.6); Phoma ssp. IgG 9.3 mcg/mL (< 6.6); Saccaharomospora viridis Not detected (Not detected); Saccaharopoly. rectivirgula Not detected (Not detected)
== END | disposition home or self-care (01) ==
LOC: RADXRMAIN 10:40
PROVIDERS: ATTEND Internal Medicine Sleep Medicine
DX: J44.9 Chronic obstructive pulmonary disease, unspecified (principal); B44.81 Allergic bronchopulmonary aspergillosis
CPT/HCPCS: 36415; 71046; 82785; 86001; 86003; 86606; 86609

== ENCOUNTER 2018-06-16 14:32 | Inpatient (IN) | payer BC ==
[2018-06-16] MEDS ORDERED: SODIUM CHLORIDE 0.9% 1,000 ML IV STA (15:43)
[2018-06-16] MEDS ORDERED: MORPHINE SULFATE 4 MG/ML SYRINGE IV STA (15:43)
--- NOTE | 2018-06-16 15:47 | ED ---
Abdominal Pain HPI - General Chief Complaint: Abdominal Pain Stated Complaint: Abd Pain Time Seen by Provider: 06/16/18 15:30 Source: patient Mode of arrival: ambulatory Limitations: no limitations - History of Present Illness Initial Comments: Patient is a 43-year-old male presenting for abdominal pain. The patient states that he has been having cramping since Tuesday on the middle portion of his abdomen below the belly button as well as the left lower side. Pain is intermittent without radiation or modifying factors. He denies any fevers or chills as well as nausea or vomiting and states that his last movement was on Tuesday. He states that he has had some mild diarrhea intermittently and that he went to an urgent care today and they told him that they found blood in his urine but he denies lary hematuria. He also denies any testicular pain and states that he has no significant intra-abdominal pathologies in the past other than an umbilical hernia repair in his 30s. - Related Data Home Medications Medication Instructions Recorded Confirmed Naproxen Sodium [Aleve] 440 mg PO Q12HR PRN 06/16/18 06/16/18 Allergies Allergy/AdvReac Type Severity Reaction Status Date / Time No Known Allergies Allergy Verified 06/16/18 15:43 Review of Systems ROS Statement: Those systems with pertinent positive or pertinent negative responses have been documented in the HPI. Constitutional: Negative for chills, fatigue and fever. HENT: Negative for congestion. Respiratory: Negative for chest tightness, shortness of breath and wheezing. Negative for cough Cardiovascular: Negative for chest pain and palpitations. Gastrointestinal: Positive for abdominal pain and diarrhea and constipation. Negative for abdominal distention, nausea and vomiting. Genitourinary: Negative for dysuria. Musculoskeletal: Negative for back pain, neck pain and neck stiffness. Skin: Negative for color change. Neurological: Negative for dizziness, speech difficulty, weakness and light- headedness. Psychiatric/Behavioral: Negative for agitation and confusion. Negative for anxiety ROS Other: All systems not noted in ROS Statement are negative. Past Medical History Past Medical History: Osteoarthritis (OA) Additional Past Medical History / Comment(s): Lt knee torn meniscus History of Any Multi-Drug Resistant Organisms: None Reported Past Surgical History: Hernia Repair, Orthopedic Surgery Additional Past Surgical History / Comment(s): Lt knee repair,Lt total knee replacement 5-2016 Past Anesthesia/Blood Transfusion Reactions: No Reported Reaction Additional Past Anesthesia/Blood Transfusion Reaction / Comment(s): no hx blood transfusion Past Psychological History: No Psychological Hx Reported Smoking Status: Former smoker Past Alcohol Use History: None Reported Past Drug Use History: None Reported - Past Family History Father Family Medical History: No Reported History Mother Family Medical History: No Reported History General Exam - General Exam Comments Initial Comments: Constitutional: Pt is oriented to person, place, and time. Pt appears well- developed and well-nourished. No distress. HENT: Head: Normocephalic and atraumatic. Eyes: EOM are normal. Neck: Normal range of motion. Neck supple. Cardiovascular: Normal rate, regular rhythm, S1 normal, S2 normal and normal heart sounds. Exam reveals no gallop and no friction rub. No murmur heard. Pulmonary/Chest: Effort normal and breath sounds normal. No tachypnea and no bradypnea. No respiratory distress. No wheezes or rales noted. Abdominal: Soft. Bowel sounds are normal. Pt exhibits no shifting dullness, no distension, no pulsatile liver, no fluid wave, no abdominal bruit and no ascites. There is no tenderness. There is no rigidity, no rebound, no guarding, no tenderness at McBurney's point and negative Rivero's sign. Musculoskeletal: Normal range of motion. Neurological: Pt is alert and oriented to person, place, and time. No cranial nerve deficit. Skin: Skin is warm and dry. No rash noted. Pt is not diaphoretic. No erythema. No pallor. Psychiatric: Pt has a normal mood and affect. Pt behavior is normal. Thought content normal. Limitations: no limitations Course Vital Signs 06/16/18 06/16/18 15:22 17:11 Temperature 99.8 F H Pulse Rate 98 89 Respiratory 18 18 Rate Blood Pressure 111/82 116/70 O2 Sat by Pulse 99 100 Oximetry Medical Decision Making - Medical Decision Making Laboratory studies showed that there was no evidence of leukocytosis and electrolytes were relatively within normal limits. There is also no evidence of transaminitis. CT of the abdomen was performed and showed inflammatory changes in the left lower quadrant with 2 cm peridiverticular abscess adjacent to the proximal sigmoid colon. Because of this, it was felt that patient could not be treated as an outpatient and he was started with IV ciprofloxacin as well as IV Flagyl.Explained all labs and diagnostic test results and that we will admit patient to hospital. Pt is agreeable to plan and case has been discussed with Katya mcmillan for Dr. Boone and they agree to accept the pt. - Lab Data Result diagrams: 06/16/18 16:05 06/16/18 16:05 Lab Results 06/16/18 06/16/18 Range/Units 16:05 16:05 WBC 9.9 (3.8-10.6) k/uL RBC 4.80 (4.30-5.90) m/uL Hgb 13.8 (13.0-17.5) gm/dL Hct 40.7 (39.0-53.0) % MCV 84.7 (80.0-100.0) fL MCH 28.7 (25.0-35.0) pg MCHC 33.9 (31.0-37.0) g/dL RDW 13.6 (11.5-15.5) % Plt Count 236 (150-450) k/uL Neutrophils % 74 % Lymphocytes % 18 % Monocytes % 6 % Eosinophils % 1 % Basophils % 0 % Neutrophils # 7.3 (1.3-7.7) k/uL Lymphocytes # 1.7 (1.0-4.8) k/uL Monocytes # 0.6 (0-1.0) k/uL Eosinophils # 0.1 (0-0.7) k/uL Basophils # 0.0 (0-0.2) k/uL Sodium 134 L (137-145) mmol/L Potassium 4.3 (3.5-5.1) mmol/L Chloride 99 (98-107) mmol/L Carbon Dioxide 25 (22-30) mmol/L Anion Gap 10 mmol/L BUN 16 (9-20) mg/dL Creatinine 0.89 (0.66-1.25) mg/dL Est GFR (CKD-EPI)AfAm >90 (>60 ml/min/1.73 sqM) Est GFR (CKD-EPI)NonAf >90 (>60 ml/min/1.73 sqM) Glucose 92 (74-99) mg/dL Calcium 9.2 (8.4-10.2) mg/dL Magnesium 1.9 (1.6-2.3) mg/dL Total Bilirubin 0.9 (0.2-1.3) mg/dL AST 30 (17-59) U/L ALT 30 (21-72) U/L Alkaline Phosphatase 77 (38-126) U/L Total Protein 7.5 (6.3-8.2) g/dL Albumin 4.2 (3.5-5.0) g/dL Lipase 39 (23-300) U/L Disposition Clinical Impression: Diverticulitis of large intestine with abscess Disposition: ADMITTED IP TO THIS [facility] Condition: Good Referrals: Zeyad Avilez DO [Primary Care Provider] - 1-2 days Decision to Admit Reason: Admit from EC Decision Date: 06/16/18 Decision Time: 18:05
[2018-06-16 16:24] LABS: Basophils % (A) 0 %; Eosinophils # (A) 0.1 k/uL (0-0.7); Eosinophils % (A) 1 %; HCT 40.7 % (39.0-53.0); HGB 13.8 gm/dL (13.0-17.5); Lymphocytes # (A) 1.7 k/uL (1.0-4.8); Lymphocytes % (A) 18 %; MCH 28.7 pg (25.0-35.0); MCHC 33.9 g/dL (31.0-37.0); MCV 84.7 fL (80.0-100.0); Mean Platelet Volume 7.6; Monocytes # (A) 0.6 k/uL (0-1.0); Monocytes % (A) 6 %; Neutrophils # (A) 7.3 k/uL (1.3-7.7); Neutrophils % (A) 74 %; Platelet Count 236 k/uL (150-450); RDW 13.6 % (11.5-15.5); WBC 9.9 k/uL (3.8-10.6)
[2018-06-16 16:31] LABS: ALT 30 U/L (21-72); AST 30 U/L (17-59); Albumin 4.2 g/dL (3.5-5.0); Alkaline Phosphatase 77 U/L (38-126); Anion Gap 10 mmol/L; Blood Urea Nitrogen 16 mg/dL (9-20); Calcium 9.2 mg/dL (8.4-10.2); Carbon Dioxide 25 mmol/L (22-30); Chloride 99 mmol/L (98-107); Glucose 92 mg/dL (74-99); Lipase 39 U/L (23-300); Magnesium 1.9 mg/dL (1.6-2.3); Potassium 4.3 mmol/L (3.5-5.1); Sodium 134 mmol/L (137-145); Total Bilirubin 0.9 mg/dL (0.2-1.3); Total Protein 7.5 g/dL (6.3-8.2)
--- NOTE | 2018-06-16 17:05 | CT ---
EXAMINATION TYPE: CT abdomen pelvis w con DATE OF EXAM: 06/16/2018 COMPARISON: None HISTORY: LLQ pain, hematuria CT DLP: 1062 mGycm Automated exposure control for dose reduction was used. TECHNIQUE: Helical acquisition of images was performed from the lung bases through the pelvis. CONTRAST: Performed without Oral Contrast and with IV Contrast, patient injected with 100 mL of Isovue 300. FINDINGS: Lung bases are clear. There is no pleural effusion. Heart size is normal. Liver and spleen appear normal. There is a 5 mm cyst in the subcapsular anterior right liver lobe. Th e pancreas appears normal. Gallbladder appears normal. Bile ducts are not dilated. There is no adrenal mass. Kidneys show satisfactory contrast opacification. There is no hydronephrosi s. There is no retroperitoneal adenopathy. There is some fat stranding around the mid sigmoid colon w ith diverticula. There is an extraluminal 2 cm complex mass on the medial wall of the mid sigmoid col on. Appendix appears normal. There is no evidence of a bowel obstruction. Bladder distends smoothly. There is no free fluid in the pelvis. The bony structures are intact. IMPRESSION: INFLAMMATORY CHANGES IN THE LEFT LOWER QUADRANT WITH 2 CM PERIDIVERTICULAR ABSCESS ADJACENT TO THE OK OXIMAL SIGMOID COLON. DIVERTICULITIS. MILD INFLAMMATORY CHANGES IN THE LARGE BOWEL MESENTERY.
[2018-06-16] MEDS ORDERED: CIPROFLOXACIN/DEXTROSE PMX 400 MG in DEXTROSE/WATER 1 200ML.BAG IVPB STA (17:34)
[2018-06-16] MEDS ORDERED: ACETAMINOPHEN TAB 325 MG TAB PO PRN (18:05)
[2018-06-16] MEDS ORDERED: NALOXONE 0.4 MG/ML 1 ML VIAL IV PRN (18:05)
[2018-06-16] MEDS: MORPHINE SULFATE 4 MG/ML SYRINGE IV PRN (21:45)
[2018-06-16] MEDS: metroNIDAZOLE-NS PMX 500 MG in SALINE 1 100ML.BAG IVPB SCH (21:46)
[2018-06-16] MEDS: SODIUM CHLORIDE 0.9% 1,000 ML IV SCH (21:47)
[2018-06-16 23:07] LABS: Appearance,Urine Clear (Clear); Bilirubin,Urine Negative (Negative); Blood,Urine Trace (Negative); Color,Urine Yellow; Glucose,Urine (UA) Negative (Negative); Ketones,Urine Negative (Negative); Leukocyte Esterase,Urine Negative (Negative); Mucus,Urine Occasional /hpf; Nitrite,Urine Negative (Negative); PH, Urine 5.5 (5.0-8.0); Protein,Urine Negative (Negative); RBC,Urine 2 /hpf (0-5); Squamous Epithelial Cell,Urine <1 /hpf (0-4); Urobilinogen,Urine <2.0 mg/dL (<2.0)
[2018-06-17] MEDS: metroNIDAZOLE-NS PMX 500 MG in SALINE 1 100ML.BAG IVPB SCH ×4 (01:29→23:26)
[2018-06-17] MEDS: MORPHINE SULFATE 4 MG/ML SYRINGE IV PRN ×4 (01:32→21:00)
[2018-06-17] MEDS: SODIUM CHLORIDE 0.9% 1,000 ML IV SCH ×2 (07:20→21:05)
--- NOTE | 2018-06-17 11:52 | P.GSCN ---
History of Present Illness Consult date: 06/17/18 Reason for Consult: Diverticulitis History of present illness: 43-year-old male presents with complaints of mid and left lower quadrant abdominal pain that began on Tuesday. Gradually increasing in severity. Came to the ER last night for evaluation. Some nausea but no vomiting. Multiple loose small stools. No rectal bleeding. Never had a colonoscopy. No prior history of diverticulitis. No family history of colon cancer. CAT scan shows diverticulitis with a small pericolonic phlegmon measuring approximately 2-3 cm containing both air and fluid. Patient says his pain is slightly improved. White blood cell count normal. Review of Systems The patient denies any acute changes in vision or hearing, no dysphagia or odynophagia, no chest pain or shortness of breath, no dysuria or hematuria, no headache, no runny nose, no rectal bleeding or melena, no unexplained weight loss Past Medical History Past Medical History: Osteoarthritis (OA) Additional Past Medical History / Comment(s): gianna knee torn meniscus, djd History of Any Multi-Drug Resistant Organisms: None Reported Past Surgical History: Hernia Repair, Orthopedic Surgery Additional Past Surgical History / Comment(s): gianna knee repair,Lt total knee replacement -2016 Past Anesthesia/Blood Transfusion Reactions: No Reported Reaction Additional Past Anesthesia/Blood Transfusion Reaction / Comm: no hx blood transfusion Smoking Status: Former smoker - Past Family History Father Family Medical History: No Reported History Additional Family Medical History / Comment(s): was adopted Mother Family Medical History: No Reported History Additional Family Medical History / Comment(s): was adopted Medications and Allergies Home Medications Medication Instructions Recorded Confirmed Type Naproxen Sodium [Aleve] 440 mg PO Q12HR PRN 06/16/18 06/16/18 History Allergies Allergy/AdvReac Type Severity Reaction Status Date / Time No Known Allergies Allergy Verified 06/16/18 15:43 Surgical - Exam Vital Signs Temp Pulse Resp BP Pulse Ox 99.8 F H 98 18 111/82 99 06/16/18 15:22 06/16/18 15:22 06/16/18 15:22 06/16/18 15:22 06/16/18 15:22 Physical exam: General: Well-developed, well-nourished HEENT: Normocephalic, sclerae nonicteric Abdomen: Mild left lower quadrant tenderness, nondistended Extremities: No edema Neuro: Alert and oriented Results - Labs 06/16/18 16:05 06/16/18 16:05 Abnormal Lab Results - Last 24 Hours (Table) 06/16/18 06/16/18 Range/Units 16:05 22:55 Sodium 134 L (137-145) mmol/L Ur Specific [place] 1.050 H (1.001-1.035) Urine Blood Trace H (Negative) Urine Mucus Occasional H (None) /hpf Diabetes panel 06/16/18 Range/Units 16:05 Sodium 134 L (137-145) mmol/L Potassium 4.3 (3.5-5.1) mmol/L Chloride 99 (98-107) mmol/L Carbon Dioxide 25 (22-30) mmol/L BUN 16 (9-20) mg/dL Creatinine 0.89 (0.66-1.25) mg/dL Glucose 92 (74-99) mg/dL Calcium 9.2 (8.4-10.2) mg/dL AST 30 (17-59) U/L ALT 30 (21-72) U/L Alkaline Phosphatase 77 (38-126) U/L Total Protein 7.5 (6.3-8.2) g/dL Albumin 4.2 (3.5-5.0) g/dL Calcium panel 06/16/18 Range/Units 16:05 Calcium 9.2 (8.4-10.2) mg/dL Albumin 4.2 (3.5-5.0) g/dL Pituitary panel 06/16/18 Range/Units 16:05 Sodium 134 L (137-145) mmol/L Potassium 4.3 (3.5-5.1) mmol/L Chloride 99 (98-107) mmol/L Carbon Dioxide 25 (22-30) mmol/L BUN 16 (9-20) mg/dL Creatinine 0.89 (0.66-1.25) mg/dL Glucose 92 (74-99) mg/dL Calcium 9.2 (8.4-10.2) mg/dL Adrenal panel 06/16/18 Range/Units 16:05 Sodium 134 L (137-145) mmol/L Potassium 4.3 (3.5-5.1) mmol/L Chloride 99 (98-107) mmol/L Carbon Dioxide 25 (22-30) mmol/L BUN 16 (9-20) mg/dL Creatinine 0.89 (0.66-1.25) mg/dL Glucose 92 (74-99) mg/dL Calcium 9.2 (8.4-10.2) mg/dL Total Bilirubin 0.9 (0.2-1.3) mg/dL AST 30 (17-59) U/L ALT 30 (21-72) U/L Alkaline Phosphatase 77 (38-126) U/L Total Protein 7.5 (6.3-8.2) g/dL Albumin 4.2 (3.5-5.0) g/dL Assessment and Plan (1) Diverticulitis of large intestine with abscess Narrative/Plan: Continue broad-spectrum antibiotics. Begin liquid diet. We'll follow. Current Visit: Yes Status: Acute Code(s): K57.20 - DVTRCLI OF LG INT W PERFORATION AND ABSCESS W/O BLEEDING SNOMED Code(s): 2744199
[2018-06-17] MEDS ORDERED: ONDANSETRON 4 MG/2 ML VIAL IVP PRN (16:47)
[2018-06-17] MEDS ORDERED: ALPRAZolam 0.25 MG TAB PO PRN (16:49)
[2018-06-17] MEDS ORDERED: HYDROcodone/APAP 5-325MG 1 EACH TAB PO PRN (16:49)
[2018-06-17] MEDS: PIPERACILLIN-TAZOBACTAM 3.375 GM in DEXTROSE/WATER 1 50ML.BAG IVPB SCH (17:41)
--- NOTE | 2018-06-17 18:35 | HP ---
HISTORY AND PHYSICAL I am covering for Dr. Avilez. DATE OF SERVICE: 06/17/2018 CHIEF COMPLAINTS: Abdominal pain. HISTORY OF PRESENT ILLNESS: This 44-year-old gentleman with a past medical history of DJD, history of hernia repair, being followed by Dr. Avilez in the outpatient setting. Patient is admitted with abdominal pain. The patient came to [facility] last night and the patient was admitted for further evaluation and treatment. An abdominal-pelvis CAT scan was done which showed inflammatory changes in the left lower quadrant with 2 cm peridiverticular abscess adjacent to proximal sigmoid colon and mild inflammatory change in the mesentery was also noted. Patient admitted for further evaluation and treatment. There is no history of any fever, rigors. No history of headache, loss of consciousness, seizures. PAST MEDICAL HISTORY: History of DJD, history of hernia repair. MEDICATIONS PRIOR TO ADMISSION: Include Naprosyn p.r.n.. ALLERGIES: None. FAMILY HISTORY: The patient is adopted. SOCIAL HISTORY: Previous history of smoking. Occasional alcohol intake. REVIEW OF SYSTEMS: ENT: No diminished hearing, diminished vision. CARDIOVASCULAR: No angina, palpitations. RESPIRATORY: As mentioned earlier. GI: As mentioned earlier. : No dysuria. NERVOUS: No numbness or weakness. ALLERGY/IMMUNOLOGY: No asthma or hay fever. MUSCULOSKELETAL: As mentioned earlier. HEMATOLOGY/ONCOLOGY: No history of anemia. ENDOCRINE: No history of diabetes, hypothyroidism. CONSTITUTIONAL: As mentioned earlier. DERMATOLOGY: Negative. RHEUMATOLOGY: Negative. PSYCHIATRY: As mentioned earlier. PHYSICAL EXAMINATION: Patient is alert and oriented x3. Pulse is 76, blood pressure 106/70, respirations 18, temperature 98.2, pulse ox 96% on room air. HEENT: Conjunctivae normal. Oral mucosa moist. NECK: No jugular venous distention. No carotid bruits. No lymph node enlargement. CARDIOVASCULAR: S1, S2 muffled. RESPIRATORY: Breath sounds diminished in the bases. No rhonchi. No crackles. ABDOMEN: Soft. Mild diffuse tenderness, left lower quadrant. No mass palpable. LEGS: No edema. NERVOUS SYSTEM: Nonfocal. LABS: CBC, BMP within normal limits. Sodium 134. UA noted. ASSESSMENT: 1. Acute diverticulitis and 2 cm peridiverticular abscess adjacent to the proximal sigmoid colon with possible contained perforation. 2. Hyponatremia. 3. History of degenerative joint disease. 4. History of hernia surgery. 5. Remote history of nicotine dependence. RECOMMENDATIONS AND DISCUSSION: In this 44-year-old gentleman who presented with multiple complex medical issues, will monitor the patient closely, continue with the current medical management and symptomatic treatment. Will initiate broad-spectrum IV antibiotics. Otherwise, I would follow closely with Surgery and resume the home medications and symptomatic treatment. Guarded prognosis. Further recommendations to follow. MMSWATI / JEFFREYN: [id number] /
[2018-06-17] MEDS ORDERED: TEMAZEPAM 15 MG CAP PO PRN (21:00)
[2018-06-17] MEDS: HEPARIN SODIUM,PORCINE 5,000 UNIT/ML 1 ML VIAL SQ SCH (21:01)
[2018-06-17] MEDS: PANTOPRAZOLE 40 MG/10 ML VIAL IVP SCH (21:01)
[2018-06-18] MEDS: PIPERACILLIN-TAZOBACTAM 3.375 GM in DEXTROSE/WATER 1 50ML.BAG IVPB SCH ×3 (00:46→17:42)
[2018-06-18 07:11] LABS: Basophils % (A) 1 %; Eosinophils # (A) 0.1 k/uL (0-0.7); Eosinophils % (A) 3 %; HCT 30.7 % (39.0-53.0); Lymphocytes % (A) 27 %; MCH 28.8 pg (25.0-35.0); MCHC 33.9 g/dL (31.0-37.0); MCV 85.2 fL (80.0-100.0); Monocytes # (A) 0.2 k/uL (0-1.0); Monocytes % (A) 5 %; Neutrophils # (A) 2.4 k/uL (1.3-7.7); Neutrophils % (A) 63 %; Platelet Count 186 k/uL (150-450); RDW 13.6 % (11.5-15.5); WBC 3.8 k/uL (3.8-10.6)
[2018-06-18 07:28] LABS: Anion Gap 7 mmol/L; Blood Urea Nitrogen 13 mg/dL (9-20); Calcium 8.2 mg/dL (8.4-10.2); Carbon Dioxide 25 mmol/L (22-30); Chloride 106 mmol/L (98-107); Glucose 93 mg/dL (74-99); Potassium 4.1 mmol/L (3.5-5.1); Sodium 138 mmol/L (137-145)
[2018-06-18 07:32] LABS: HGB 10.4 gm/dL (13.0-17.5)
[2018-06-18] MEDS: HEPARIN SODIUM,PORCINE 5,000 UNIT/ML 1 ML VIAL SQ SCH ×3 (08:34→21:14)
[2018-06-18] MEDS: metroNIDAZOLE-NS PMX 500 MG in SALINE 1 100ML.BAG IVPB SCH ×2 (08:34→17:42)
[2018-06-18] MEDS: PANTOPRAZOLE 40 MG/10 ML VIAL IVP SCH ×2 (08:34→21:15)
[2018-06-18] MEDS: SODIUM CHLORIDE 0.9% 1,000 ML IV SCH ×2 (08:35→21:18)
--- NOTE | 2018-06-18 09:18 | P.PN ---
<Darlin Briscoene M - Last Filed: 06/18/18 09:09> Subjective Progress Note Date: 06/18/18 43-year-old male seen this morning. Currently resting in bed. Patient states there's a slight improvement in the left lower quadrant pain continues to persist pain medication effective for pain control. stated that he had frequent small loose stools with no rectal bleeding bowel movement reports no nausea vomiting tolerating a clear liquid diet. CAT scan obtained on admission showed diverticulitis involving the large intestine with an abscess. Currently patient's white count 3.8 afebrile Objective - Vital Signs Vital signs: Vital Signs Temp 98.0 F 06/18/18 06:04 Pulse 88 06/18/18 06:04 Resp 16 06/18/18 06:04 BP 96/53 06/18/18 06:04 Pulse Ox 97 06/18/18 06:04 Intake & Output 06/17/18 06/18/18 06/18/18 18:59 06:59 18:59 Intake Total 1840 Balance 1840 Intake: Intake, IV Titration 400 Amount Sodium Chloride 0.9% 1, 300 000 ml @ 75 mls/hr IV . [id number] KENYATTA Rx#:[id number] metroNIDAZOLE-NS PMX 500 100 mg In Saline 1 100ml.bag @ 100 mls/hr IVPB Q8HR KENYATTA Rx#:[id number] Oral 1440 Other: Voiding Method Toilet Toilet # Voids 3 1 - Exam Physical exam 43-year-old male sitting up in bed appears in no acute distress Lungs clear on room air Heart S1-S2 audible regular no chest pain Abdomen mild tenderness left lower quadrant active bowel tones states passing gas pain medication effective for pain control nondistended urinating no difficulty tolerating clear liquids with no nausea Extremities no edema - Labs CBC & Chem 7: 06/18/18 06:39 06/18/18 06:39 Labs: Abnormal Lab Results - Last 24 Hours (Table) 06/18/18 06/18/18 Range/Units 06:39 06:39 RBC 3.60 L (4.30-5.90) m/uL Hgb 10.4 L D (13.0-17.5) gm/dL Hct 30.7 L (39.0-53.0) % Calcium 8.2 L (8.4-10.2) mg/dL Assessment and Plan Assessment: Impression Present on admission left lower quadrant pain suspect due to diverticulitis with abscess CAT scan abdomen pelvis on admission shows diverticulitis with a small 2-3 cm abscess Plan IV fluid as ordered Pain control IV Flagyl and Zosyn as ordered DVT and GI prophylaxis Continue clear liquid diet monitor response advance if tolerated Will follow with you with further recommendations pending clinical course Would benefit from an outpatient colonoscopy when appropriate The above impression and plan of care have been discussed and directed by signing physician. Juleitte Briscoe nurse practitioner acting as scribe for signing physician. <Rigo White - Last Filed: 06/18/18 11:11> Objective - Vital Signs Vital signs: Vital Signs Temp 98.0 F 06/18/18 06:04 Pulse 88 06/18/18 06:04 Resp 16 06/18/18 06:04 BP 96/53 06/18/18 06:04 Pulse Ox 97 06/18/18 06:04 Intake & Output 06/17/18 06/18/18 06/18/18 18:59 06:59 18:59 Intake Total 1840 Balance 1840 Intake: Intake, IV Titration 400 Amount Sodium Chloride 0.9% 1, 300 000 ml @ 75 mls/hr IV . [id number] KENYATTA Rx#:[id number] metroNIDAZOLE-NS PMX 500 100 mg In Saline 1 100ml.bag @ 100 mls/hr IVPB Q8HR KENYATTA Rx#:[id number] Oral 1440 Other: Voiding Method Toilet Toilet # Voids 3 1 - Labs CBC & Chem 7: 06/18/18 06:39 06/18/18 06:39 Labs: Abnormal Lab Results - Last 24 Hours (Table) 06/18/18 06/18/18 Range/Units 06:39 06:39 RBC 3.60 L (4.30-5.90) m/uL Hgb 10.4 L D (13.0-17.5) gm/dL Hct 30.7 L (39.0-53.0) % Calcium 8.2 L (8.4-10.2) mg/dL Assessment and Plan Assessment: Patient doing better today. His pain is improved. Asking for more to eat. He is afebrile. White blood cell count is normal. Abdomen soft, mild left lower quadrant tenderness certainly improved. Will advance diet to full liquids. (1) Diverticulitis of large intestine with abscess Current Visit: Yes Status: Acute Code(s): K57.20 - DVTRCLI OF LG INT W PERFORATION AND ABSCESS W/O BLEEDING SNOMED Code(s): 2597946
--- NOTE | 2018-06-18 21:06 | PN ---
PROGRESS NOTE I am covering for Dr. Avilez. DATE OF SERVICE: 06/18/2018. This 43-year-old gentleman admitted with acute diverticulitis and 2 cm peridiverticular abscess is being closely monitored at this time. Dr. White has seen the patient and recommended continue conservative line of management. The patient is afebrile. Patient on broad-spectrum IV antibiotics. No chest pain. No palpitations. PHYSICAL EXAM: Alert and oriented x3. Pulse is 74, blood pressure 108/70, respiration 18, temperature 98.1, pulse ox 98 percent on room air. HEENT: Conjunctivae normal. Neck is no jugular venous distention. Cardiovascular: S1, S2 muffled. Respirations: Breath sounds diminished in the bases. No rhonchi. No crackles. ABDOMEN: Soft. Mild diffuse discomfort on the left lower quadrant. No guarding. No rigidity. No mass palpable. Legs: No edema. No swelling. Central nervous system: No focal deficits. LAB STUDIES: WBC 2.9, hemoglobin 10.4. UA noted. ASSESSMENT: 1. Acute diverticulitis with 2 cm diverticular abscess with adjacent proximal sigmoid colon with possible contained perforation. 2. Hyponatremia. 3. History of degenerative joint disease. 4. History of hernia surgery. 5. Remote history of nicotine dependence. RECOMMENDATIONS AND DISCUSSION: Recommend to continue current medications, management and symptomatic treatment. Continue with the conservative line of management. Continue broad-spectrum IV antibiotics. Closely follow with Dr. White. Prognosis guarded. Discussed with the patient and Dr. Avilez will follow tomorrow. MMODL / IJN: [id number] /
[2018-06-19] MEDS: metroNIDAZOLE-NS PMX 500 MG in SALINE 1 100ML.BAG IVPB SCH ×2 (00:16→08:27)
[2018-06-19] MEDS: PIPERACILLIN-TAZOBACTAM 3.375 GM in DEXTROSE/WATER 1 50ML.BAG IVPB SCH ×2 (00:16→09:33)
[2018-06-19 07:18] VITALS: RESP 15
[2018-06-19 07:33] LABS: Basophils % (A) 1 %; Eosinophils # (A) 0.2 k/uL (0-0.7); Eosinophils % (A) 5 %; HGB 10.9 gm/dL (13.0-17.5); Lymphocytes # (A) 1.8 k/uL (1.0-4.8); Lymphocytes % (A) 46 %; MCH 28.9 pg (25.0-35.0); MCHC 34.1 g/dL (31.0-37.0); MCV 84.6 fL (80.0-100.0); Mean Platelet Volume 7.7; Monocytes # (A) 0.2 k/uL (0-1.0); Monocytes % (A) 6 %; Neutrophils # (A) 1.6 k/uL (1.3-7.7); Neutrophils % (A) 40 %; Platelet Count 207 k/uL (150-450); RBC 3.78 m/uL (4.30-5.90); RDW 13.4 % (11.5-15.5); WBC 3.8 k/uL (3.8-10.6)
[2018-06-19 07:52] LABS: Anion Gap 5 mmol/L; Blood Urea Nitrogen 8 mg/dL (9-20); Calcium 8.5 mg/dL (8.4-10.2); Carbon Dioxide 27 mmol/L (22-30); Chloride 107 mmol/L (98-107); Glucose 80 mg/dL (74-99); Sodium 139 mmol/L (137-145)
[2018-06-19] MEDS: HEPARIN SODIUM,PORCINE 5,000 UNIT/ML 1 ML VIAL SQ SCH (08:27)
[2018-06-19] MEDS: PANTOPRAZOLE 40 MG/10 ML VIAL IVP SCH (08:27)
--- NOTE | 2018-06-19 11:06 | P.PN ---
Subjective Progress Note Date: 06/19/18 patient seen and examined at the bedside on rounds with Dr. Avilez. Patient initially presented to the hospital on 06/16/2018 with abdominal pain and cramping since Tuesday on the middle portion of his abdomen below the bellybutton as well as a left lower side. Pain was intermittent without radiation or modifying factors. He denied fever chills. Denied nausea or vomiting. Patient did report some intermittent diarrhea upon admission. He has been seen by general surgery. patient is on a full liquid diet. He states he is feeling better. He does report some mild abdominal pain. He continues to have some diarrhea. He is tolerating a full liquid diet. No nausea or vomiting. He remains on IV Flagyl and Zosyn. Denies chest pain or pressure. Denies shortness of breath. Objective - Vital Signs Vital signs: Vital Signs Temp 97 F L 06/19/18 07:17 Pulse 56 L 06/19/18 07:17 Resp 15 06/19/18 07:17 BP 110/74 06/19/18 07:17 Pulse Ox 99 06/19/18 07:17 Intake & Output 06/18/18 06/19/18 06/19/18 18:59 06:59 18:59 Intake Total 2029 925 Balance 2029 925 Weight 84.368 kg Intake: IV 925 Sodium Chloride 0.9% 1, 825 000 ml @ 75 mls/hr IV . [id number] KENYATTA Rx#:[id number] metroNIDAZOLE-NS PMX 500 100 mg In Saline 1 100ml.bag @ 100 mls/hr IVPB Q8HR KENYATTA Rx#:[id number] Intake, IV Titration 750 Amount Piperacillin-Tazobactam 3 50 .375 gm In Dextrose/Water 1 50ml.bag @ 12.5 mls/hr IVPB Q8HR KENYATTA Rx#: [id number] Sodium Chloride 0.9% 1, 600 000 ml @ 75 mls/hr IV . [id number] KENYATTA Rx#:[id number] metroNIDAZOLE-NS PMX 500 100 mg In Saline 1 100ml.bag @ 100 mls/hr IVPB Q8HR KENYATTA Rx#:[id number] Oral 1280 Other: Voiding Method Toilet Toilet # Voids 1 1 - Exam GENERAL: This is a 43-year-old male in no apparent distress at the time of examination. Pleasant and cooperative. HEENT: Head is atraumatic, normocephalic. Pupils are equal, round, and reactive to light. Sclerae anicteric. Conjunctivae are clear. Mucus membranes of the mouth are moist. Neck is supple. RESPIRATORY: Clear to ausculation. No wheezes, rales, or rhonchi. No use of accessory muscles. Patient maintaining oxygen saturation greater than 92%. No chest wall tenderness is noted on palpation or with deep breathing. CARDIOVASCULAR: Regular rate and rhythm. S1 and S2 noted. No systolic or diastolic murmur auscultated. No JVD noted. No S3 or S4 noted. GASTROINTESTINAL: No distention noted. Abdomen soft and round. Normal active bowel sounds auscultated x 4 quadrants. mild pain and tenderness noted upon palpation. INTEGUMENTARY: No cyanosis. No jaundice. No rashes noted. No cellulitis noted. EXTREMITIES: 2+ peripheral pulses. No evidence of peripheral edema. No calf tenderness noted. NEUROLOGIC: Cranial nerves II-XII intact. PSYCHIATRIC: Awake, alert, and oriented X 3. Appropriate affect. Intact judgement and insight. - Labs CBC & Chem 7: 06/19/18 07:13 06/19/18 07:13 Labs: Abnormal Lab Results - Last 24 Hours (Table) 06/19/18 06/19/18 Range/Units 07:13 07:13 RBC 3.78 L (4.30-5.90) m/uL Hgb 10.9 L (13.0-17.5) gm/dL Hct 32.0 L (39.0-53.0) % BUN 8 L (9-20) mg/dL Microbiology - Last 24 Hours (Table) 06/17/18 17:13 Blood Culture - Preliminary Blood No Growth after 24 hours 06/17/18 20:45 Urine Culture - Preliminary Urine,Voided Assessment and Plan Plan: ASSESSMENT: Diverticulitis with 2-3 cm abscess, present on admission, Abdominal pain, secondary to above, improving PLAN: general surgery on consult. Appreciate recommendations and input Advance diet per surgery Continue IV Flagyl and Zosyn Gen. surgery recommends outpatient colonoscopy when appropriate Home meds as appropriate Monitor labs GI prophylaxis: Protonix 40 mg IV BID DVT prophylaxis: Heparin 5000 units subcu every 12 hours Monitor vital signs and address as appropriate Discharge planning: Patient to return home when stable Further recommendations pending patient's course possible discharge home tomorrow if okay with general surgery Nurse practitioner note has been reviewed by physician. Signing provider agrees with the documented findings, assessment, and plan of care.
[2018-06-19] MEDS: SODIUM CHLORIDE 0.9% 1,000 ML IV SCH (12:01)
--- NOTE | 2018-06-19 15:21 | P.DS ---
Providers Date of admission: 06/16/18 18:06 Expected date of discharge: 06/19/18 Attending physician: Zeyad Avilez Consults: 06/17/18 10:42 Consult Physician Routine Consulting Provider: Wali Sheffield Consult Reason/Comments: diverticulitis Do you want consulting provider notified?: Yes Primary care physician: Zeyad Avilez [facility] Course: Is a 43-year-old male who was admitted to the hospital. Patient was admitted with diverticulitis. Patient symptoms resolved with IV antibiotic. The patient was discharged home on 06/19. He'll follow myself in one week. Patient Condition at Discharge: Good Plan - Discharge Summary Discharge Rx Participant: Yes New Discharge Prescriptions: New Ciprofloxacin HCl [Cipro] 500 mg PO Q12HR #20 tablet metroNIDAZOLE [Flagyl] 500 mg PO TID #30 tab Continue Naproxen Sodium [Aleve] 440 mg PO Q12HR PRN PRN Reason: Pain Discharge Medication List Naproxen Sodium [Aleve] 440 mg PO Q12HR PRN 06/16/18 [History] Ciprofloxacin HCl [Cipro] 500 mg PO Q12HR #20 tablet 06/19/18 [Rx] metroNIDAZOLE [Flagyl] 500 mg PO TID #30 tab 06/19/18 [Rx] Follow up Appointment(s)/Referral(s): Zeyad Avilez DO [Primary Care Provider] - 06/26/18 11:00 am Wali Sheffield MD [STAFF PHYSICIAN] - 06/27/18 9:00 am (please bring drivers license ,insurance card and medication list to doctors appt.) Patient Instructions/Handouts: Ciprofloxacin (By mouth), Metronidazole (By mouth), Diverticulitis (DC), Diverticulitis Diet (DC)
--- NOTE | 2018-06-19 15:55 | P.PN ---
Progress Note - Text Progress Note Date: 06/19/18 The patient feels better. His pain has resolved. On exam his vital signs are stable. His evidence soft. It. Patient was discharged home today. He'll follow myself in one week.
[2018-06-19 15:58] VITALS: BP 125/75; PULSE 65; TEMP 97.6
== END 2018-06-19 16:00 | disposition home or self-care (01) | DRG 392 ==
LOC: EC 14:32 → 5MS5E 18:06
PROVIDERS: ADMIT Family Medicine; ATTEND Family Medicine
DX: K57.20 Diverticulitis of large intestine with perforation and abscess without bleeding (principal); E87.1 Hypo-osmolality and hyponatremia; Z87.891 Personal history of nicotine dependence; Z96.652 Presence of left artificial knee joint; Z79.1 Long term (current) use of non-steroidal anti-inflammatories (NSAID); M19.90 Unspecified osteoarthritis, unspecified site
CPT/HCPCS: 36415; 74177; 80048; 80053; 81001; 83690; 83735; 85025; 87040; 87086; 96361; 96365; 96375; 99285

== ENCOUNTER → 2018-08-02 | Outpatient (CLI) | payer BC ==
[2018-08-02 13:37] LABS: Basophils % (A) 1 %; Eosinophils # (A) 0.1 k/uL (0-0.7); Eosinophils % (A) 2 %; HCT 39.8 % (39.0-53.0); HGB 13.6 gm/dL (13.0-17.5); Lymphocytes # (A) 2.3 k/uL (1.0-4.8); Lymphocytes % (A) 44 %; MCH 28.9 pg (25.0-35.0); MCHC 34.3 g/dL (31.0-37.0); MCV 84.3 fL (80.0-100.0); Mean Platelet Volume 7.7; Monocytes # (A) 0.3 k/uL (0-1.0); Monocytes % (A) 6 %; Neutrophils # (A) 2.4 k/uL (1.3-7.7); Neutrophils % (A) 46 %; Platelet Count 249 k/uL (150-450); RBC 4.72 m/uL (4.30-5.90); RDW 13.9 % (11.5-15.5); WBC 5.3 k/uL (3.8-10.6)
[2018-08-02 13:40] LABS: Partial Thromboplastin Time 26.2 sec (22.0-30.0)
[2018-08-02 13:44] LABS: Potassium 4.3 mmol/L (3.5-5.1)
== END ==
LOC: LABPAT 11:50
PROVIDERS: ATTEND Orthopaedic Surgery
DX: Z01.812 Encounter for preprocedural laboratory examination (principal); M17.11 Unilateral primary osteoarthritis, right knee
CPT/HCPCS: 36415; 80051; 85025; 85610; 85730; 87070

== ENCOUNTER 2018-08-07 11:29 | Inpatient (IN) | payer BC ==
[2018-07-27 09:09] VITALS: BMI 25.7
--- NOTE | 2018-08-06 09:46 | HP ---
HISTORY AND PHYSICAL HISTORY: Vipul Rodriguez is a 43-year-old patient seen with symptomatic right knee osteoarthritis. Treatment options were discussed. He elected to proceed with right total knee arthroplasty. Consent regarding the procedure was obtained. PAST MEDICAL HISTORY: Osteoarthritis. PAST SURGICAL HISTORY: Left knee arthroscopy, left total knee arthroplasty, right shoulder arthroscopy. DAILY MEDICATIONS: IBUPROFEN. ALLERGIES: None. SOCIAL HISTORY: Patient denies tobacco use. PHYSICAL EXAMINATION: Evaluation of the right knee, his range of motion is -7 to 90. Tenderness medial joint line. Crepitus medial patellofemoral lateral compartments with range of motion. Ligaments stable hip rotation without pain. Distal neurovascular exam intact. IMAGING: Right knee radiographs reveal severe medial moderate lateral and severe patellofemoral compartment osteoarthritis. IMPRESSION: Right knee osteoarthritis. PLAN: Right total knee arthroplasty. MMODL / IJN: [id number] /
[~2018-08-07 11:29] MED LIST changes: +ACETAMINOPHEN TAB 500 MG TAB PO ONE; +DEXAMETHASONE SOD PHOSPHATE 10 MG/ML 1 ML VIAL IV ONE; -LACTATED RINGERS 1,000 ML IV SCH; +MELOXICAM 7.5 MG TAB PO ONE; +ONDANSETRON 4 MG/2 ML VIAL IVP ONE; +TRANEXAMIC ACID 1,000 MG in SODIUM CHLORIDE 0.9% 50 ML IVPB ONE; +ceFAZolin IN SWFI 2 GM/20 ML SYRINGE IVP ONE; +fentaNYL (PF) 50 MCG/ML 2 ML AMP IV PRN; +fentaNYL (PF) 50 MCG/ML 20 ML VIAL IVP PRN
[2018-08-07] MEDS ORDERED: ONDANSETRON 4 MG/2 ML VIAL ONE (11:51)
[2018-08-07] MEDS ORDERED: ROPIVACAINE 246.25 MG, EPINEPHrine 0.5 MG, KETOROLAC 30 MG, cloNIDine HCL/PF 80 MCG, WA... MISCELLANE ONE ×5 (12:16)
[2018-08-07] MEDS ORDERED: MIDAZOLAM 2 MG/2 ML VIAL ONE ×2 (12:18→12:58)
[2018-08-07] MEDS: LACTATED RINGERS 1,000 ML IV SCH ×4 (12:24→19:17)
[2018-08-07] MEDS ORDERED: DEXAMETHASONE SOD PHOSPHATE 10 MG/ML 1 ML VIAL IV ONE (12:25)
[2018-08-07] MEDS ORDERED: TRANEXAMIC ACID 1,000 MG/10 ML VIAL ONE (12:58)
[2018-08-07] MEDS ORDERED: SODIUM CHLORIDE 0.9% MISCELLANE PRN ×2 (12:58)
[2018-08-07] MEDS ORDERED: SODIUM CHLORIDE 0.9% 100 ML BAG ONE (12:58)
[2018-08-07] MEDS ORDERED: ROPIVACAINE MISCELLANE PRN ×2 (12:58)
[2018-08-07] MEDS ORDERED: fentaNYL (PF) 50 MCG/ML 2 ML AMP ONE (12:58)
[2018-08-07] MEDS ORDERED: PHENYLEPHRINE-0.9% NACL SYG 1 MG/10 ML SYRINGE ONE (12:58)
[2018-08-07] MEDS ORDERED: PROPOFOL 10 MG/ML 20 ML VIAL IV ONE (12:58)
--- NOTE | 2018-08-07 13:04 | P.ONQ ---
Anesthesiology Proc Note - PNB - Peripheral Nerve Block Performed Right Adductor Canal Infusion Time Out Performed: Yes Procedure Start Time: 12:33 Procedure Stop Time: 12:43 Indication: Acute Post-Operative Pain, Requested by physician Sedation Type: Sedate with meaningful contact maintained Preparation: Sterile Dressing Position: Supine Catheter: Indwelling Needle Types: On-Q Needle Size: 100mm (4") Needle Gauge: 21 Technique: Ultrasound Injectate: 0.5% Ropivacaine (see comment for volume) (ropi.5% 20cc) Blood Aspirated: No Pain Paresthesia on Injection Noted: No Resistance on Injection: Normal Events: Uneventful and Well Tolerated
[2018-08-07] MEDS ORDERED: ceFAZolin 3,000 MG in SODIUM CHLORIDE 0.9% IRRIGATIO 3,000 ML IRRIGATION ONE (13:35)
[2018-08-07] MEDS ORDERED: LACTATED RINGERS 1,000 ML IV ONE (14:09)
--- NOTE | 2018-08-07 15:02 | P.OP ---
Date of Procedure: 08/07/18 Preoperative Diagnosis: Right knee osteoarthritis Postoperative Diagnosis: Right knee osteoarthritis Procedure(s) Performed: Right total knee arthroplasty Implants: 1. Stephany persona size 11 right narrow cruciate retaining cemented femur 2. Stephany persona size G right cemented tibial baseplate 3. Stephany persona 10 mm medial congruent polyethylene tibial insert 4. Stephany persona 38 mm all polyethylene cemented patella Anesthesia: regional (Adductor canal catheter), local, spinal Surgeon: Alvarado Mayen District Manager [employer]: Balta Jacobo Estimated Blood Loss (ml): 55 Pathology: other (Bone) Condition: stable Disposition: PACU Indications for Procedure: 43-year-old patient seen with symptomatically right knee osteoarthritis. After treatment options were discussed he elected to proceed with total knee arthroplasty. Operative Findings: see description of procedure Description of Procedure: Patient was taken to the operative suite after having an adductor canal catheter placed by the department of anesthesia for postoperative pain management. Patient underwent a spinal anesthetic by the department of anesthesia. Patient was given preoperative IV intake antibiotics and TXA. A well-padded tourniquet was placed about the right lower extremity. The lower extremity was then prepped and draped in the normal sterile orthopedic fashion. The extremity was elevated, a tourniquet was insufflated to 300. A standard anterior incision was made sharply through skin. Dissection was taken down through the subcutaneous soft tissues down to the extensor mechanism. A medial arthrotomy was performed, patella was everted and knee was flexed. There was advanced osteoarthritis noted. I introduced my distal intramedullary femoral drill. I then introduced the distal femoral cutting jig. Christos SANCHES secured the cutting jig with 2 pins. I held retractors in position while Christos SANCHES performed the distal femoral resection through the guide area we now removed her distal femoral cutting guide. We now placed our 4-in-1 femoral cutting block and positioned and it was secured with 2 pins by Christos SANCHES while I held the block in position. The distal femoral finishing was now completed. A proximal tibial cutting guide was positioned. I held the guide in the appropriate position with both hands well Christos SANCHES inserted stabilizing pins into the guide. Proximal tibial cut was made. We now placed a trial femoral component into position, along with an appropriate size tibial tray and insert. We now took the knee through range of motion and had full extension good flexion and good overall soft tissue balance noted. The patella was everted and stabilized with 2 towel clips held by Christos SANCHES while I performed a flush with patellar quad tendon utilizing a fresh sawblade. We templated the patella, appropriate drill holes were made. An appropriate trial patella was positioned, knee was taken through full range of motion with the patella tracking very nicely. The trial patella was removed. Drill holes were made through the femoral component. All trial components were removed after marking off the appropriate rotation of the tibia. Retractors were now positioned along the proximal tibia. An appropriate keel punch was made with the appropriate size tibial guide by myself on Christos SANCHES assisted by holding retractors. At this point appropriate size implants were chosen and opened. The joint was irrigated copiously with pulse lavage mechanical irrigation. The posterior capsule was infiltrated with local analgesic. The wound was irrigated with pulse lavage mechanical irrigation. We mixed antibiotic methylmethacrylate. We placed the knee into flexion. We placed multiple retractors assisted by Christos SANCHES to expose the proximal tibia. Once the methyl methacrylate was ready, the tibial component was cemented into place removing any excess methylmethacrylate form by both myself and Christos SANCHES. The femoral component was cemented into place removing the removing any excess methylmethacrylate performed by both myself and Christos SANCHES. We then inserted the appropriate size polyethylene tibial insert. We made sure that it was locked into position. We took the knee into full extension, and then back in a flexion making sure we had removed any excess methylmethacrylate. The patellar component was then cemented down and secured with clamp. Excess methylmethacrylate removed. We kept the knee in full extension, patellar clamp in position until methylmethacrylate had hardened. Once it had hardened the patellar clamp was removed. The knee was taken through full range of motion. The patella tracked nicely. There was good soft tissue balancing. The tourniquet was now released. Additional hemostasis was achieved via electrocautery. A second gram of TXA was given. The wound again was irrigated with pulse lavage mechanical irrigation. The superficial soft tissues were infiltrated local analgesic. The extensor mechanism was repaired with Vicryl. We checked the repair with range of motion and it was stable. The subcutaneous soft tissues were repaired with Vicryl in layers. The skin was approximated with pernio/Dermabond. Sterile dressings were applied followed by loose web roll and Roni bandage. The patient was transferred to a bed, and taken to recovery in stable and satisfactory condition. Christos SANCHES assisted with this complex procedure.
[2018-08-07] MEDS ORDERED: ONDANSETRON 4 MG/2 ML VIAL IVP PRN (15:03)
[2018-08-07] MEDS ORDERED: HYDROmorphone 0.5 MG/0.5 ML SYRINGE IVP PRN (15:03)
[2018-08-07] MEDS ORDERED: HYDROmorphone 1 MG/ML 1 ML SYRINGE IVP PRN ×2 (15:03→15:15)
[2018-08-07] MEDS ORDERED: NALOXONE 0.4 MG/ML 1 ML VIAL IV PRN (15:03)
[2018-08-07] MEDS ORDERED: HYDROcodone/APAP 5-325MG 1 EACH TAB PO PRN (15:03)
--- NOTE | 2018-08-07 15:55 | XR ---
EXAMINATION TYPE: XR knee limited RT DATE OF EXAM: 08/07/2018 CLINICAL HISTORY: Right knee pain and arthritis status post total knee replacement. TECHNIQUE: Portable AP and crosstable lateral views of the right knee are obtained immediately posto peratively. COMPARISON: None FINDINGS: Metallic hardware from total right knee arthroplasty is seen and appears satisfactory i n alignment and position. There is evidence of recent surgery with diffuse subcutaneous gas and soft tissue swelling noted. IMPRESSION: METALLIC HARDWARE FROM TOTAL RIGHT KNEE ARTHROPLASTY IS SATISFACTORY IN ALIGNMENT.
[2018-08-07] MEDS: HYDROmorphone 1 MG/ML 1 ML SYRINGE IVP ONE ×2 (16:50→17:09)
[2018-08-07] MEDS: traMADol 50 MG TAB PO SCH ×2 (17:26→22:29)
[2018-08-07 17:44] LABS: Basophils % (A) 0 %; Eosinophils % (A) 0 %; HCT 36.6 % (39.0-53.0); HGB 12.5 gm/dL (13.0-17.5); Lymphocytes # (A) 0.8 k/uL (1.0-4.8); Lymphocytes % (A) 11 %; MCH 28.2 pg (25.0-35.0); MCHC 34.2 g/dL (31.0-37.0); MCV 82.4 fL (80.0-100.0); Mean Platelet Volume 7.3; Monocytes # (A) 0.1 k/uL (0-1.0); Monocytes % (A) 2 %; Neutrophils # (A) 6.1 k/uL (1.3-7.7); Neutrophils % (A) 86 %; Platelet Count 233 k/uL (150-450); RBC 4.44 m/uL (4.30-5.90); RDW 13.9 % (11.5-15.5); WBC 7.1 k/uL (3.8-10.6)
[2018-08-07 17:52] LABS: Anion Gap 11 mmol/L; Blood Urea Nitrogen 14 mg/dL (9-20); Calcium 9.2 mg/dL (8.4-10.2); Carbon Dioxide 24 mmol/L (22-30); Chloride 105 mmol/L (98-107); Glucose 124 mg/dL (74-99); Potassium 4.3 mmol/L (3.5-5.1); Sodium 140 mmol/L (137-145)
--- NOTE | 2018-08-07 18:11 | CONS ---
CONSULTATION I am covering for Dr. Avilez. REASON FOR CONSULTATION: Advice regarding DJD and other multiple medical issues, requested by Orthopedics. HISTORY OF PRESENT ILLNESS: This 43-year-old gentleman with a past medical history of DJD, diverticulitis, history of knee arthroscopy, history of nicotine dependence, being followed by Dr. Zeyad Avilez in the outpatient setting, underwent total right knee arthroplasty by Dr. Mayen. There is no history of any fever, rigor or chills. No history of headache, loss of consciousness, seizures. The patient is complaining of some right knee pain. PAST MEDICAL HISTORY: 1. History of DJD. 2. History of diverticulitis. 3. History of hernia repair. HOME MEDICATIONS: None. ALLERGIES: NONE. FAMILY HISTORY: The patient is adopted. SOCIAL HISTORY: Previous history of smoking. Occasional alcohol intake. REVIEW OF SYSTEMS: ENT: No diminished hearing. No diminished vision. CARDIOVASCULAR SYSTEM: No angina, palpitations. RESPIRATORY SYSTEM: No cough, hemoptysis. GI: No nausea, vomiting. : No dysuria or retention. NERVOUS SYSTEM: As mentioned earlier. ALLERGY/IMMUNOLOGY: No asthma, hayfever. MUSCULOSKELETAL: As mentioned earlier. HEMATOLOGY/ONCOLOGY: No history of anemia. ENDOCRINE: No history of diabetes, hypothyroidism. CONSTITUTIONAL: As mentioned earlier. DERMATOLOGY: Negative. RHEUMATOLOGY: Negative. PSYCHIATRY: Negative. PHYSICAL EXAMINATION: Patient is alert and oriented x3. Pulse 75, blood pressure 112/60, respirations 16, temperature normal, pulse ox 97% on room air. HEENT: External appearance of nose and ears normal. Oral cavity normal. NECK: No jugular venous distention. No carotid bruit. No lymph node enlargement. CARDIOVASCULAR SYSTEM: S1, S2 muffled. No S3. No S4. RESPIRATORY SYSTEM: Breath sounds diminished at the bases. No rhonchi. No crackles. ABDOMEN: Soft, non-tender. No mass palpable. LEGS: Status post right knee arthroplasty. NERVOUS SYSTEM: Higher functions as mentioned earlier. Moves all 4 limbs. No focal motor or sensory deficit. LYMPHATIC: No lymph node palpable in neck or axillae. SKIN: No ulcer, rash, bleeding. LABS: Labs done on 08/02/2008 showed hemoglobin 13.6, coags normal, BUN normal, cholesterol 228, LDL 141 and TSH 3.150. Vitamin D level 18.9. Otherwise, UA was unremarkable. IgE was 15.8. ASSESSMENT: 1. Status post right total knee arthroplasty. 2. Degenerative joint disease. 3. History of hyperlipidemia. 4. History of nicotine dependence. 5. History of diverticulitis. RECOMMENDATIONS AND DISCUSSION: In this 43-year-old gentleman who presented after surgery, at this time I recommend to continue current medication, continue symptomatic treatment, incentive spirometry, DVT prophylaxis. I would also recommend close followup with Dr. Zeyad Avilez in the outpatient setting for outpatient evaluation of hyperlipidemia. Otherwise, we will closely monitor. Thank you, Dr. Mayen, for letting us participate in the care of this patient. MMODL / IJN: [id number] /
[2018-08-07] MEDS: HYDROcodone/APAP 5-325MG 1 EACH TAB PO PRN (19:36)
[2018-08-07] MEDS: SENNOSIDES-DOCUSATE SODIUM 1 EACH TAB PO SCH (20:06)
[2018-08-07] MEDS: ceFAZolin IN SWFI 2 GM/20 ML SYRINGE IVP SCH (20:06)
[2018-08-08] MEDS: LACTATED RINGERS 1,000 ML IV SCH ×3 (01:24→21:37)
[2018-08-08] MEDS: HYDROcodone/APAP 5-325MG 1 EACH TAB PO PRN (02:08)
[2018-08-08] MEDS: ceFAZolin IN SWFI 2 GM/20 ML SYRINGE IVP SCH (04:36)
--- NOTE | 2018-08-08 06:15 | P.PN ---
Progress Note - Text Progress Note Date: 08/08/18 The patient is doing well status post total knee replacement. Pain is well controlled by a combination of local anesthetic infusion through the adductor canal catheter and oral analgesics. There are no signs of infection around the catheter skin entry site. The local anesthetic infusion will be continued as per protocol.
[2018-08-08] MEDS: traMADol 50 MG TAB PO SCH ×4 (08:06→23:05)
[2018-08-08] MEDS: ENOXAPARIN 30 MG/0.3 ML SYRINGE SQ SCH ×2 (08:06→20:58)
[2018-08-08] MEDS: MELOXICAM 7.5 MG TAB PO SCH (08:08)
[2018-08-08 08:23] LABS: Basophils % (A) 0 %; Eosinophils % (A) 0 %; HCT 33.8 % (39.0-53.0); HGB 11.7 gm/dL (13.0-17.5); Lymphocytes # (A) 1.4 k/uL (1.0-4.8); Lymphocytes % (A) 10 %; MCH 28.8 pg (25.0-35.0); MCHC 34.6 g/dL (31.0-37.0); MCV 83.1 fL (80.0-100.0); Monocytes # (A) 0.9 k/uL (0-1.0); Monocytes % (A) 6 %; Neutrophils # (A) 11.7 k/uL (1.3-7.7); Neutrophils % (A) 84 %; Platelet Count 216 k/uL (150-450); RBC 4.07 m/uL (4.30-5.90); RDW 14.1 % (11.5-15.5)
[2018-08-08 11:25] LABS: Appearance,Urine Clear (Clear); Bilirubin,Urine Negative (Negative); Blood,Urine Negative (Negative); Color,Urine Light Yellow; Glucose,Urine (UA) Negative (Negative); Ketones,Urine Negative (Negative); Leukocyte Esterase,Urine Negative (Negative); Nitrite,Urine Negative (Negative); Protein,Urine Negative (Negative); Specific Gravity,Urine 1.009 (1.001-1.035); Urobilinogen,Urine <2.0 mg/dL (<2.0)
--- NOTE | 2018-08-08 12:27 | PN ---
PROGRESS NOTE DATE OF SERVICE: 08/08/2018 This 43-year-old gentleman who was admitted after right total knee arthroplasty improved significantly. No chest pain. No palpitations. No fever. PHYSICAL EXAMINATION: On exam, alert and oriented x3. Patient is 89. Blood pressure 122/83, respirations 16, temperature 98.4, pulse ox 96% on room air. HEENT: Conjunctivae normal. Oral mucosa moist. Neck is no jugular venous distention. No carotid bruit. No lymph nodes enlargement. CARDIAC: S1, S2 muffled. RESPIRATORY: Breath sounds diminished in the bases. A few rhonchi. No crackles. ABDOMEN: Soft, nontender. LEGS: No edema.status post surgery. NERVOUS SYSTEM: No focal deficits. LABS: WBC 14, hemoglobin 11.7. ASSESSMENT: 1. Status post right total knee arthroplasty. 2. Increased WBC, possibly reactive. 3. Degenerative joint disease. 4. History of hyperlipidemia. 5. History of nicotine dependence. 6. History of diverticulitis. RECOMMENDATIONS AND DISCUSSION: Recommend to continue current medications and symptomatic treatment. Otherwise at this time I recommend UA with micro, DVT prophylaxis, incentive spirometry. Closely follow with orthopedic surgery. Further recommendations to follow. MMODL / IJN: [id number] / [facility]aul
[2018-08-08] MEDS: HYDROmorphone 1 MG/ML 1 ML SYRINGE IVP PRN ×2 (12:54→18:22)
[2018-08-08] MEDS: MULTIVITAMINS, THERA 1 EACH TAB PO SCH (12:54)
--- NOTE | 2018-08-08 13:06 | P.PN ---
Subjective Progress Note Date: 08/08/18 Principal diagnosis: Status post right total knee arthroplasty Patient seen today resting in his hospital bed, he appears comfortable. He is ambulating well with therapy. he denies any chest pain, shortness of breath, fevers or chills. Objective - Vital Signs Vital signs: Vital Signs Temp 98.4 F 08/08/18 07:00 Pulse 89 08/08/18 08:06 Resp 16 08/08/18 08:06 BP 122/83 08/08/18 07:00 Pulse Ox 96 08/08/18 07:00 Intake & Output 08/07/18 08/08/18 08/08/18 18:59 06:59 18:59 Intake Total 1851 200 322 Output Total 55 1000 700 Balance 1796 800 -378 Intake: IV 1851 Intake, IV Titration 200 Amount Lactated Ringers 1,000 ml 200 @ 100 mls/hr IV .Q10H KENYATTA Rx#:[id number] Oral 322 Output: Urine 1000 700 Estimated Blood Loss 55 Other: Voiding Method Urinal Urinal - Exam Right lower extremity: Incision is clean, dry, and intact. The prineo tape is in good condition. There is minimal soft tissue swelling and ecchymosis surrounding the medial and lateral aspects of the incision. Calf is soft, no tenderness with palpation. Plantar flexion, dorsiflexion, EHL, FHL are intact. Sensory exam to light touch throughout the extremity is intact, dorsal pedis pulses 2+. - Labs CBC & Chem 7: 08/08/18 07:27 08/07/18 17:20 Labs: Abnormal Lab Results - Last 24 Hours (Table) 08/07/18 08/07/18 08/08/18 Range/Units 17:20 17:20 07:27 WBC 14.0 H (3.8-10.6) k/uL RBC 4.07 L (4.30-5.90) m/uL Hgb 12.5 L 11.7 L (13.0-17.5) gm/dL Hct 36.6 L 33.8 L (39.0-53.0) % Neutrophils # 11.7 H (1.3-7.7) k/uL Lymphocytes # 0.8 L (1.0-4.8) k/uL Glucose 124 H (74-99) mg/dL Assessment and Plan Plan: Assessment: Postoperative day 1 status post right total knee arthroplasty Plan: Pain controlled, will discharge home on oral medication GI and DVT prophylaxis, we'll discharge home aspirin 81 mg twice a day Wound care instructions were discussed Medical recommendations Home physical therapy and nursing after discharge Discharge planning: Patient will likely be discharged home today Time with Patient: Less than 30
--- NOTE | 2018-08-08 13:10 | P.DS ---
Providers Date of admission: 08/07/18 11:29 Expected date of discharge: 08/08/18 Attending physician: Alvarado Mayen Consults: 08/07/18 15:03 Consult Physician Routine Consulting Provider: Zeyad Avilez Reason/Comments: Medical management Do you want consulting provider notified?: Yes Primary care physician: Zeyad Avilez [facility] Course: Date of admission: 08/07/2018 Date of discharge: 08/08/2018 Admission diagnosis: Status post right total knee arthroplasty Discharge diagnosis: Same Attending physician: Dr. Mayen Surgical procedures: Right total knee arthroplasty Brief history: Patient is a 43-year-old male with a history of progressive primary right knee osteoarthritis. At this point patient has failed conservative treatment measures and has opted to proceed with a elective right total knee arthroplasty. Hospital course: Details of patient's surgery can be found in operative report. Patient tolerated the procedure well and was subsequently transported to orthopedic floor. Patient's orthopeidc and medical care was provided daily. Patient had daily laboratory tests performed for evaluation of overall blood counts. Patient had daily physical therapy to include strengthening range of motion as well as education with walker ambulation. Patient had daily CPM usage as part of their physical therapy program. Patient was treated with Lovenox for their postoperative DVT prophylaxis during their inpatient stay. Patient was noted to have a relatively uneventful postoperative course. Patient reported satisfactory pain control with oral pain medications by postoperative day 0. Patient showed satisfactory progress with physical therapy. Patient moved steadily through the program and had no difficulty meeting the goals by postoperative day 1. Given patient's otherwise satisfactory course and having met physical therapy goals, plan is to discharge patient home on postoperative day 1. Discharge condition/disposition: Patient will be discharged home in stable condition. Discharge medications: Instructions are given on resumption of patient's normal daily medications per primary care recommendation, in addition patient will be prescribed [place] 5 mg/325 mg, tramadol 50 mg, aspirin 81 mg, Colace 100 mg. Discharge instructions: 1. Wound care and infection precautions, keep incision dry and covered while showering, no lotions, creams, moisturizers. No soaking, tubs, pools, hottubs. Do not scrub over the incision. 2. Weight-bear as tolerated with walker / cane until follow-up. 3. Ice and elevate when necessary. Do not exceed 20 minutes per hour with ice pack. 4. Utilize compression sleeve until seen at first follow up appointment. 5. Visiting nursing care. 6. Home physical therapy including home CPM. 7. Pain meds and anticoagulants per prescription. 8. Pain medication has potential to cause constipation. Increase oral fluid and fiber intake. Contact primary care provider if you have not had a bowel movement within 48 hours after discharge 9. No anti-inflammatory medication until discussed at first post operative visit, this including Motrin, Aleve, Mobic, Diclofenac. 10. Follow up in office at 2 weeks postop with Christos Jacobo PA-C 11. Follow up with your primary care doctor 7-10 days after discharge. 12. Contact [facility] with any questions, . Procedures: Right total knee arthroplasty Patient Condition at Discharge: Good Plan - Discharge Summary Discharge Rx Participant: Yes New Discharge Prescriptions: New Aspirin [Adult Low Dose Aspirin EC] 81 mg PO BID #60 tablet. Doclele [Colace] 100 mg PO DAILY #30 capsule Hydrocodone/Acetaminophen [Vancouver 5-325] 1 - 2 each PO Q6HR PRN #40 tab PRN Reason: Pain traMADol HCl [Ultram] 50 mg PO Q6H PRN #28 tab PRN Reason: Pain Discharge Medication List Aspirin [Adult Low Dose Aspirin EC] 81 mg PO BID #60 tablet. 08/08/18 [Rx] Docusate [Colace] 100 mg PO DAILY #30 capsule 08/08/18 [Rx] Hydrocodone/Acetaminophen [V[place] 5-325] 1 - 2 each PO Q6HR PRN #40 tab 08/08/18 [Rx] traMADol HCl [Ultram] 50 mg PO Q6H PRN #28 tab 08/08/18 [Rx] Follow up Appointment(s)/Referral(s): [facility], [NON-STAFF] - Balta Jacobo PAC [PHYSICIAN CERTIFIED PROFESSIONAL MIDWIFE] - 08/23/18 2:10 pm Activity/Diet/Wound Care/Special Instructions: Orthopedic Discharge Instructions: 1. Wound care and infection precautions, keep incision dry and covered while showering, no lotions, creams, moisturizers. No soaking, pools, hot tubs. Do not scrub over incision. 2. Weight-bear as tolerated with walker / cane until follow-up. 3. Ice and elevate when necessary. Do not exceed 20 minutes per hour with ice pack. 4. Utilize compression sleeve until seen at first follow up appointment. 5. Pain meds and anticoagulants per prescription. 6. Pain medication has potential to cause constipation. Increase oral fluid and fiber intake. Contact primary care provider if you have not had a bowel movement within 48 hours after discharge. 7. No anti-inflammatory medication until discussed at first post operative visit, this including Motrin, Aleve, Mobic, Diclofenac. 8. Follow up in office at 2 weeks postop with Christos Jacobo PA-C 9. Follow up with your primary care doctor 7-10 days after discharge. 10. Contact [facility] with any questions, . Discharge Disposition: HOME WITH HOME HEALTH SERVICES
[2018-08-08] MEDS ORDERED: HYDROcodone/APAP 7.5-325MG 1 EACH TAB PO PRN (16:26)
[2018-08-08] MEDS: SENNOSIDES-DOCUSATE SODIUM 1 EACH TAB PO SCH (20:58)
[2018-08-08] MEDS: HYDROcodone/APAP 7.5-325MG 1 EACH TAB PO PRN (21:03)
[2018-08-09] MEDS: HYDROcodone/APAP 7.5-325MG 1 EACH TAB PO PRN ×2 (04:11→10:16)
[2018-08-09] MEDS: LACTATED RINGERS 1,000 ML IV SCH (07:36)
[2018-08-09 07:49] VITALS: RESP 17
[2018-08-09] MEDS: traMADol 50 MG TAB PO SCH ×2 (08:10→12:57)
[2018-08-09] MEDS: ENOXAPARIN 30 MG/0.3 ML SYRINGE SQ SCH (08:10)
[2018-08-09] MEDS: MELOXICAM 7.5 MG TAB PO SCH (08:10)
[2018-08-09] MEDS ORDERED: HYDROmorphone 4 MG TABLET PO PRN (09:50)
[2018-08-09] MEDS ORDERED: HYDROmorphone 2 MG TAB PO PRN ×2 (09:51)
--- NOTE | 2018-08-09 09:51 | P.PN ---
Subjective Progress Note Date: 08/09/18 Principal diagnosis: Status post right total knee arthroplasty Patient seen today resting in his hospital bed, he appears comfortable. Patient did stay one additional night, he was having some increase in pain. I did alter the oral pain medication, this has improved. He denies any chest pain , shortness of breath, fevers or chills. Objective - Vital Signs Vital signs: Vital Signs Temp 98.3 F 08/09/18 07:25 Pulse 60 08/09/18 07:25 Resp 17 08/09/18 07:25 BP 109/74 08/09/18 07:25 Pulse Ox 96 08/09/18 07:25 Intake & Output 08/08/18 08/09/18 08/09/18 18:59 06:59 18:59 Intake Total 922 Output Total 700 875 150 Balance 222 -875 -150 Intake: Intake, IV Titration 600 Amount Lactated Ringers 1,000 ml 600 @ 100 mls/hr IV .Q10H KENYATTA Rx#:[id number] Oral 322 Output: Urine 700 875 150 Other: Voiding Method Urinal Urinal Toilet Urinal # Voids 2 - Exam Right lower extremity: Incision is clean, dry, and intact. The prineo tape is in good condition. There is minimal soft tissue swelling and ecchymosis surrounding the medial and lateral aspects of the incision. Calf is soft, no tenderness with palpation. Plantar flexion, dorsiflexion, EHL, FHL are intact. Sensory exam to light touch throughout the extremity is intact, dorsal pedis pulses 2+. - Labs CBC & Chem 7: 08/08/18 07:27 08/07/18 17:20 Assessment and Plan Plan: Assessment: Postoperative day #2 status post right total knee arthroplasty Plan: Pain controlled, will discharge home on oral medication GI and DVT prophylaxis, we'll discharge home aspirin 81 mg twice a day Wound care instructions were discussed Medical recommendations Home physical therapy and nursing after discharge Discharge planning: Patient will likely be discharged home today Time with Patient: Less than 30
[2018-08-09] MEDS: MULTIVITAMINS, THERA 1 EACH TAB PO SCH (12:57)
--- NOTE | 2018-08-09 13:04 | PN ---
PROGRESS NOTE DATE OF SERVICE: 08/09/2018 This 43-year-old gentleman who was admitted after right total knee arthroplasty improving significantly. No chest pain. No palpitations. No fever. PHYSICAL EXAMINATION: On exam, alert and oriented x3. The pulse is 60, blood pressure 109/74, respiration 17, temperature 98.3, pulse ox 98% on room air. HEENT: Conjunctivae normal. Oral mucosa moist. Neck is no jugular venous distention. No carotid bruit. No lymph node enlargement. CARDIOVASCULAR: S1 and S2 muffled. RESPIRATORY: Breath sounds diminished at the bases. No rhonchi. No crackles. ABDOMEN: Soft, nontender. LEGS: Status post right knee arthroplasty. NERVOUS SYSTEM: No focal deficits. LABS: WBC 14, hemoglobin 11.7. UA normal. ASSESSMENT: 1. Status post right total knee arthroplasty. 2. Increased WBC, possibly reactive. 3. Degenerative joint disease. 4. History of hyperlipidemia. 5. History of nicotine dependence. 6. History of diverticulitis. RECOMMENDATIONS AND DISCUSSION: I recommend to continue current medications, continue symptomatic treatment. Otherwise resume the home medications. Closely follow with primary physician. orthopedic surgery. Further recommendations to follow. MMODL / IJN: [id number] / [facility]
[2018-08-09 14:18] VITALS: BP 114/74; PULSE 79; TEMP 98.5
== END 2018-08-09 15:41 | disposition home health service (06) | DRG 470 ==
LOC: 2ORMAIN 11:29 → 3SUR 15:05
PROVIDERS: ADMIT Orthopaedic Surgery; ATTEND Orthopaedic Surgery
PROC: 0SRC0J9 Replacement of Right Knee Joint with Synthetic Substitute, Cemented, Open Approach (ICD-10-PCS; principal; 2018-08-07 13:00)
DX: M17.11 Unilateral primary osteoarthritis, right knee (principal); Z96.652 Presence of left artificial knee joint; Z87.891 Personal history of nicotine dependence
CPT/HCPCS: 80048; 81003; 85025; 88300

== ENCOUNTER 2018-11-13 08:06 | Day surgery (SDC) | payer BC ==
[2018-11-09 15:03] VITALS: BMI 25.1
--- NOTE | 2018-11-12 15:16 | HP ---
HISTORY AND PHYSICAL HISTORY: Vipul Rodriguez is a 43-year-old patient seen after having undergone right total knee arthroplasty with residual right knee adhesions. We discussed options. He elected to proceed with manipulation under anesthesia right knee with steroid injection. Consent was obtained. PAST MEDICAL HISTORY: Noncontributory. PAST SURGICAL HISTORY: Bilateral total knee arthroplasty, right shoulder arthroscopy, herniorrhaphy. MEDICATIONS: Berkley. ALLERGIES: None. SOCIAL HISTORY: Denies tobacco use. PHYSICAL EXAMINATION: Evaluation of the right knee, range of motion is -35 to 70. Well-healed anterior incision. No effusion. Ligaments stable. Hip rotation without pain. Distal neurovascular exam intact. RADIOGRAPHS: Radiographs of the right knee revealed a stable-appearing total knee arthroplasty. IMPRESSION: 1. Right knee adhesions. 2. History of right total knee arthroplasty. PLAN: Manipulation under anesthesia right knee with steroid injection. MMODL / IJN: [id number] /
[~2018-11-13 08:06] MED LIST changes: -ACETAMINOPHEN TAB 500 MG TAB PO ONE; +LACTATED RINGERS 1,000 ML IV SCH; -MELOXICAM 7.5 MG TAB PO ONE; +SCOPOLAMINE 1.5MG/72HR PATCH TRANSDERM ONE; -TRANEXAMIC ACID 1,000 MG in SODIUM CHLORIDE 0.9% 50 ML IVPB ONE; -fentaNYL (PF) 50 MCG/ML 2 ML AMP IV PRN; -fentaNYL (PF) 50 MCG/ML 20 ML VIAL IVP PRN
[2018-11-13] MEDS ORDERED: MIDAZOLAM 2 MG/2 ML VIAL ONE (09:15)
[2018-11-13] MEDS ORDERED: PROPOFOL 10 MG/ML 20 ML VIAL IV ONE (09:15)
[2018-11-13] MEDS ORDERED: BUPIVACAINE (PF) 0.25% 30 ML VIAL INTRAARTIC ONE (09:28)
[2018-11-13] MEDS ORDERED: TRIAMCINOLONE ACETONIDE 40 MG/ML 1 ML VIAL INTRAARTIC ONE (09:29)
--- NOTE | 2018-11-13 09:33 | P.OP ---
Date of Procedure: 11/13/18 Preoperative Diagnosis: Right knee adhesions Postoperative Diagnosis: Same Procedure(s) Performed: Manipulation under anesthesia right knee with intra-articular steroid injection Anesthesia: MAC Surgeon: Alvarado Mayen Estimated Blood Loss (ml): 0 Pathology: none sent Condition: stable Disposition: PACU Indications for Procedure: 43-year-old patient seen with right knee adhesions after having previously undergone total knee arthroplasty. We discussed treatment options and he elected to proceed with manipulation under anesthesia with steroid injection. Operative Findings: see description of procedure Description of Procedure: The patient was taken to a monitored anesthesia area. The patient received preoperative IV antibiotics. The patient underwent IV sedation by the department of anesthesia. Once sufficient anesthesia was noted a manipulation of the right knee was performed. I was able to achieve -5 of extension and 125 of flexion with obvious tearing and releasing the adhesions. The superior lateral aspect of the right knee was now prepped and draped in the normal sterile orthopedic fashion. I injected 1 mL Depo-Medrol and 2 mL quarter percent plain Marcaine intra-articular. A sterile Band-Aid was applied. The knee was again taken through range of motion. The patient was now awakened having tolerated the procedure well.
[2018-11-13] MEDS: HYDROmorphone 0.5 MG/0.5 ML SYRINGE IVP PRN ×4 (09:36→10:00)
[2018-11-13 09:44] VITALS: RESP 18; TEMP 98
[2018-11-13] MEDS ORDERED: KETOROLAC 30 MG/ML 1 ML VIAL IVP ONE (09:48)
[2018-11-13] MEDS ORDERED: HYDROcodone/APAP 7.5-325MG 1 EACH TAB PO ONE (11:00)
[2018-11-13 11:43] VITALS: BP 128/80; PULSE 87
== END 2018-11-13 11:59 | disposition home or self-care (01) ==
LOC: OR 08:06
PROVIDERS: ATTEND Orthopaedic Surgery
DX: M23.8X1 Other internal derangements of right knee (principal); Z96.653 Presence of artificial knee joint, bilateral; Z79.891 Long term (current) use of opiate analgesic
CPT/HCPCS: 27570; 20610; J2250; J1100; J3301; J2405; J1885; J2704; J1170

== ENCOUNTER → 2019-02-09 | Outpatient (CLI) | payer BC ==
--- NOTE | 2019-02-10 11:40 | MR ---
EXAMINATION TYPE: MR brain/orbits wo/w con DATE OF EXAM: 02/09/2019 COMPARISON: None HISTORY: Ischemic optic neuropathy lt eye TECHNIQUE: Multiplanar, multisequence images of the brain and brainstem is performed without and with IV contras t, utilizing 7.5 mL intravenous Gadavist . FINDINGS: Diffusion weighted images demonstrate no evidence of a recent infarct or other diffusion ab normality. There is no extra-axial fluid collection or significant white matter signal abnormality. The ventricular system and cisternal spaces are normal in size and appearance. The brain volume is age appropriate. There is a large sellar or suprasellar mass which demonstrates homogeneous enhancement and results in severe compression of the optic chiasm and optic tracts. The optic chiasm is not visualized due to t he severe compression. There does appear to be suggestion of encasement of a portion of the right car otid artery. Additionally, there is displacement of the anterior cerebral arteries greater on the lef t. Meningioma would be within the differential diagnosis as well as pituitary macroadenoma. Would fav or a large meningioma. Correlate clinically. Report immediately called to the referring clinician. Additionally within the orbits could not exclude intraconal edema particularly on the left. Trace katie unt of fluid surrounding the optic nerves on T2 imaging can be associated with papilledema correlate clinically. Changes of chronic sinusitis are noted. Ventricular system is midline with no mass effect. Intraorbital muscles are symmetric in size bilaterally. IMPRESSION: 1. 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 There is encasement of portions of the right i nternal carotid artery. Meningioma would be the most likely etiology. Large pituitary macroadenoma al so in the differential diagnosis. 2. Trace amount of fluid surrounding the optic nerves can be associated with papilledema. There is va bhavik increased signal within the intraconal portion of the orbit greater on the left which is nonspeci fic but may represent intraconal edema.
== END | disposition home or self-care (01) ==
LOC: RADMRIMAIN 18:40
PROVIDERS: ATTEND Ophthalmology
DX: H47.49 Disorders of optic chiasm in (due to) other disorders (principal); G93.5 Compression of brain; R90.89 Other abnormal findings on diagnostic imaging of central nervous system
CPT/HCPCS: 70543; 70553; A9585

== ENCOUNTER → 2019-02-22 | Outpatient (CLI) | payer BC ==
[2019-02-22 20:27] LABS: ACTH 10.3 pg/mL (0.00-45.99)
[2019-02-23 13:17] LABS: Growth Hormone, Human <0.1 ng/mL (<10)
== END | disposition home or self-care (01) ==
LOC: LABWHC1 13:40
PROVIDERS: ATTEND Neurological Surgery
DX: D32.9 Benign neoplasm of meninges, unspecified (principal)
CPT/HCPCS: 36415; 82024; 82533; 83001; 83003; 84146; 84305; 84443

== ENCOUNTER 2019-03-31 21:47 | Emergency (ER) | payer BC ==
[2019-03-31 22:03] VITALS: RESP 16
[2019-04-01 02:14] LABS: Basophils # (A) 0.1 k/uL (0-0.2); Basophils % (A) 1 %; Eosinophils # (A) 0.1 k/uL (0-0.7); Eosinophils % (A) 1 %; HCT 31.7 % (39.0-53.0); HGB 10.3 gm/dL (13.0-17.5); Hypochromasia Slight; Lymphocytes # (A) 1.6 k/uL (1.0-4.8); Lymphocytes % (A) 19 %; MCH 29.5 pg (25.0-35.0); MCHC 32.5 g/dL (31.0-37.0); MCV 90.8 fL (80.0-100.0); Mean Platelet Volume 7.3; Monocytes # (A) 0.5 k/uL (0-1.0); Monocytes % (A) 6 %; Neutrophils # (A) 6.1 k/uL (1.3-7.7); Neutrophils % (A) 72 %; Platelet Count 339 k/uL (150-450); RBC 3.49 m/uL (4.30-5.90); RDW 15.9 % (11.5-15.5); WBC 8.5 k/uL (3.8-10.6)
[2019-04-01 02:24] LABS: INR 0.8 (<1.2); Partial Thromboplastin Time 24.3 sec (22.0-30.0); Prothrombin Time 9.3 sec (9.0-12.0)
[2019-04-01 02:52] VITALS: BP 119/85; PULSE 89; TEMP 98.5
--- NOTE | 2019-04-01 03:00 | ED ---
ENT HPI - General Chief complaint: ENT Stated complaint: Bloody nose Time Seen by Provider: 03/31/19 22:38 Source: patient Mode of arrival: ambulatory Limitations: no limitations - History of Present Illness Initial comments: 43-year-old male patient presents to the emergency department today for evaluation of epistaxis. Patient states he has had bleeding from the right nostril since 5:30 this afternoon. 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 Patient states he did have an episode of epistaxis after the procedure which required cauterization by his surgeon. Patient states today he did blow his nose despite being advised against this after his surgical procedure. States that is when t he bleeding started. Patient states that he has attempted to use Afrin and applied pressure but has not helped. Patient states he can feel the blood running down the back of his throat. He denies any dizziness or weakness. States he is just very tired. Patient denies any recent rash, fever, chills, shortness breath, chest pain, abdominal pain, nausea, vomiting, diarrhea, constipation, back pain, numbness, tingling, dizziness, weakness, hematuria, dysuria, urinary urgency, urinary frequency, headache, visual changes, or any other complaints. - Related Data Home Medications Medication Instructions Recorded Confirmed Acetaminophen [Tylenol Extra 500 mg PO TID PRN 03/31/19 03/31/19 Strength] Hydrocortisone 5 mg PO BID 03/31/19 03/31/19 Allergies Allergy/AdvReac Type Severity Reaction Status Date / Time No Known Allergies Allergy Verified 03/31/19 22:48 Review of Systems ROS Statement: Those systems with pertinent positive or pertinent negative responses have been documented in the HPI. ROS Other: All systems not noted in ROS Statement are negative. Past Medical History Past Medical History: Osteoarthritis (OA) Additional Past Medical History / Comment(s): diverticulitis History of Any Multi-Drug Resistant Organisms: None Reported Past Surgical History: Hernia Repair, Joint Replacement, Orthopedic Surgery Additional Past Surgical History / Comment(s): gianna knee arthroscopy ,Lt total knee replacement, benign brain tumor removed, Past Anesthesia/Blood Transfusion Reactions: No Reported Reaction Additional Past Anesthesia/Blood Transfusion Reaction / Comment(s): no hx blood transfusion Past Psychological History: No Psychological Hx Reported Smoking Status: Former smoker Past Alcohol Use History: Rare Past Drug Use History: None Reported - Past Family History Father Family Medical History: Unable to Obtain Additional Family Medical History / Comment(s): was adopted Mother Family Medical History: Unable to Obtain Additional Family Medical History / Comment(s): was adopted General Exam Limitations: no limitations General appearance: alert, in no apparent distress, other (Physical well- developed, well-nourished adult male patient in no acute distress. Vital signs upon presentation are temperature 98.0F, pulse 99, respirations 16, blood pressure 127/85, pulse ox 97% on room air.) Eye exam: Present: normal appearance, PERRL, EOMI. Absent: scleral icterus, conjunctival injection, periorbital swelling ENT exam: Present: mucous membranes moist, other (There is bleeding noted from the right naris. Visual inspection of the right nasal passage did reveal some pinpoint bleeding over the septum. Additional bleeding noted from posterior nasal passage.). Absent: normal exam Respiratory exam: Present: normal lung sounds bilaterally. Absent: respiratory distress, wheezes, rales, rhonchi, stridor Cardiovascular Exam: Present: regular rate, normal rhythm, normal heart sounds. Absent: systolic murmur, diastolic murmur, rubs, gallop, clicks GI/Abdominal exam: Present: soft, normal bowel sounds. Absent: distended, tenderness, guarding, rebound, rigid Neurological exam: Present: alert, oriented X3, CN II-XII intact Psychiatric exam: Present: normal affect, normal mood Skin exam: Present: warm, dry, intact, normal color. Absent: rash Course Vital Signs 03/31/19 04/01/19 21:58 02:51 Temperature 98.0 F 98.5 F Pulse Rate 99 89 Respiratory 16 16 Rate Blood Pressure 127/85 119/85 O2 Sat by Pulse 97 99 Oximetry Medical Decision Making - Medical Decision Making 43-year-old male patient presents to the emergency department today for evaluation of bleeding from the right nostril. Patient underwent transsphenoidal resection of a pituitary tumor at the beginning of February. Patient did have one previous episode of epistaxis which was resolved with cautery by his surgeon. We did attempt to clear the nasal passage of debris utilizing sterile swabs. We instilled Afrin nasal spray and applied pressure. Patient still exhibited bleeding after this process. I did call and discuss the case with his surgeon Dr. Edmonds. He recommended obtaining hemoglobin and packing the nose with Murocel. He also recommended patient be monitored until morning. I did discuss the plan with the patient, labs were drawn. Hgb stable at 10.3, with a past level of 10.2 on 03/12/19. When I went to perform nasal packing patient refused packing and stated that he wanted to be transferred to [place] to see his physician. He stated that the packing made his symptoms worse with the previous nose bleed and he did not want to go through this again. I did discuss the case with the ER physician at [facility] who accepts the transfer. I did inform patient that he may not see his surgeon until the morning and that the same treatment recommendations may be made at their facility. He verbalized understanding and wanted to proceed with transfer. - Lab Data Result diagrams: 04/01/19 02:04 Lab Results 04/01/19 04/01/19 Range/Units 02:04 02:04 WBC 8.5 (3.8-10.6) k/uL RBC 3.49 L (4.30-5.90) m/uL Hgb 10.3 L (13.0-17.5) gm/dL Hct 31.7 L (39.0-53.0) % MCV 90.8 (80.0-100.0) fL MCH 29.5 (25.0-35.0) pg MCHC 32.5 (31.0-37.0) g/dL RDW 15.9 H (11.5-15.5) % Plt Count 339 (150-450) k/uL Neutrophils % 72 % Lymphocytes % 19 % Monocytes % 6 % Eosinophils % 1 % Basophils % 1 % Neutrophils # 6.1 (1.3-7.7) k/uL Lymphocytes # 1.6 (1.0-4.8) k/uL Monocytes # 0.5 (0-1.0) k/uL Eosinophils # 0.1 (0-0.7) k/uL Basophils # 0.1 (0-0.2) k/uL Hypochromasia Slight PT 9.3 (9.0-12.0) sec INR 0.8 (<1.2) APTT 24.3 (22.0-30.0) sec Disposition Clinical Impression: Epistaxis, History of recent ear, nose, and throat (ENT) procedure Disposition: OTHER INSTITUTION NOT DEFINED Condition: Serious Referrals: Zeyad Avilez DO [Primary Care Provider] - 1-2 days - Out of Hospital Transfer - Req. Specs Out of Hospital Transfer - Requested Specifics: Other Emergency Center ([facility])
== END 2019-04-01 03:35 | disposition other institution (70) ==
LOC: EC 21:47
DX: R04.0 Epistaxis (principal); M19.90 Unspecified osteoarthritis, unspecified site; Z86.011 Personal history of benign neoplasm of the brain; Z87.891 Personal history of nicotine dependence; Z79.899 Other long term (current) drug therapy; Z96.652 Presence of left artificial knee joint; Z98.890 Other specified postprocedural states; Z53.29 Procedure and treatment not carried out because of patient's decision for other reasons
CPT/HCPCS: 36415; 85025; 85610; 85730; 99284

== ENCOUNTER → 2019-05-10 | Outpatient (CLI) | payer BC ==
[2019-05-10 16:28] LABS: Basophils # (A) 0.1 k/uL (0-0.2); Basophils % (A) 1 %; Eosinophils # (A) 0.1 k/uL (0-0.7); Eosinophils % (A) 2 %; HCT 35.1 % (39.0-53.0); HGB 11.6 gm/dL (13.0-17.5); Lymphocytes # (A) 2.1 k/uL (1.0-4.8); Lymphocytes % (A) 33 %; MCH 28.9 pg (25.0-35.0); MCV 87.6 fL (80.0-100.0); Mean Platelet Volume 7.4; Monocytes # (A) 0.3 k/uL (0-1.0); Monocytes % (A) 6 %; Neutrophils # (A) 3.6 k/uL (1.3-7.7); Neutrophils % (A) 57 %; Platelet Count 302 k/uL (150-450); RBC 4.01 m/uL (4.30-5.90); RDW 14.3 % (11.5-15.5); WBC 6.3 k/uL (3.8-10.6)
[2019-05-10 17:05] LABS: Potassium 4.1 mmol/L (3.5-5.1)
== END | disposition home or self-care (01) ==
LOC: LABPAT 16:03
PROVIDERS: ATTEND Orthopaedic Surgery
DX: Z01.812 Encounter for preprocedural laboratory examination (principal); M23.8X1 Other internal derangements of right knee; Z96.651 Presence of right artificial knee joint
CPT/HCPCS: 36415; 80051; 85025

== ENCOUNTER 2019-05-16 07:53 | Day surgery (SDC) | payer BC ==
[2019-05-14 12:56] VITALS: BMI 29.1
--- NOTE | 2019-05-15 13:33 | HP ---
HISTORY AND PHYSICAL DATE OF SURGERY: 05/16/2019 Vipul Rodriguez is a 44-year-old patient seen with persistent right knee adhesions after having previously undergone total knee arthroplasty. We discussed options for treatment. He elected to proceed with right knee arthroscopy with lysis of adhesions and debridement. Consent was obtained. PAST MEDICAL HISTORY: Osteoarthritis. PAST SURGICAL HISTORY: Bilateral total knee arthroplasty. DAILY MEDICATIONS: None. ALLERGIES: None reported. SOCIAL HISTORY: Denies tobacco use. PHYSICAL EXAMINATION: Physical evaluation of the right knee: There is a well-healed anterior incision. Range of motion is -12 to 70. Ligaments are stable. Hip rotation without pain. Distal neurovascular exam is intact. Radiographs of the right knee reveal a stable appearing total knee arthroplasty. IMPRESSION: 1. Right knee adhesions. 2. History of right total knee arthroplasty. PLAN: Arthroscopy right knee with lysis of adhesions and debridement. MMODL / IJN: [id number] /
[~2019-05-16 07:53] MED LIST changes: +MIDAZOLAM 2 MG/2 ML VIAL IV PRN; -ONDANSETRON 4 MG/2 ML VIAL IVP ONE; -SCOPOLAMINE 1.5MG/72HR PATCH TRANSDERM ONE; -ceFAZolin IN SWFI 2 GM/20 ML SYRINGE IVP ONE; +fentaNYL (PF) 50 MCG/ML 2 ML AMP IV PRN
[2019-05-16] MEDS ORDERED: LIDOCAINE 1% INJ 10MG/ML (20 ML MDV) ONE (09:51)
[2019-05-16] MEDS ORDERED: HYDROmorphone (PF) 1 MG/ML ONE (09:51)
[2019-05-16] MEDS ORDERED: MIDAZOLAM 2 MG/2 ML VIAL ONE (09:51)
[2019-05-16] MEDS ORDERED: fentaNYL (PF) 50 MCG/ML 2 ML AMP ONE (09:51)
[2019-05-16] MEDS ORDERED: KETOROLAC 30 MG/ML 1 ML VIAL ONE (09:51)
[2019-05-16] MEDS ORDERED: PROPOFOL 10 MG/ML 20 ML VIAL IV ONE (09:51)
[2019-05-16] MEDS ORDERED: BUPIVACAINE (PF) 0.5% 30 ML VIAL SQ ONE (10:25)
[2019-05-16] MEDS ORDERED: LACTATED RINGERS 1,000 ML IV ONE (10:47)
[2019-05-16 11:24] VITALS: TEMP 97.6
--- NOTE | 2019-05-16 11:24 | P.OP ---
Date of Procedure: 05/16/19 Preoperative Diagnosis: Right knee adhesions Postoperative Diagnosis: 1. Right knee adhesions 2. Reactive synovitis medial, lateral and suprapatellar compartments right knee Procedure(s) Performed: 1. Arthroscopic lysis of adhesions right knee 2. Arthroscopic partial synovectomy medial, lateral and suprapatellar compartments right knee Anesthesia: ESTELA, local Surgeon: Alvarado Mayen Estimated Blood Loss (ml): 12 Pathology: none sent Condition: stable Disposition: PACU Indications for Procedure: 44-year-old patient seen with persistent right knee adhesions a stiffness after having previously undergone total knee arthroplasty along with postoperative manipulation and significant amount physical therapy. We discussed treatment options. He elected post with arthroscopic lysis of adhesions. Consent was obtained. Operative Findings: See description of procedure Description of Procedure: Patient was taken to the operative suite. Patient underwent a general anesthetic by the department of anesthesia. Patient was given preoperative antibiotics. The right lower extremity was placed in a well-padded arthroscopic leg kelly. The right leg was prepped and draped in the normal sterile orthopedic fashion. A lateral parapatellar and suprapatellar incision was made. Trochars were inserted. Arthroscopy was initiated. Suprapatellar pouch revealed diffuse thick reactive synovitis. There was also significant adhesions noted throughout the super patellar compartment. The polyethylene patella. Stable. It did appear to articulate within the femoral sulcus. I guided the scope and the medial compartment. There was thick reactive synovitis anteriorly. There was significant scar tissue/adhesions along the medial aspect of the knee. At this point an incision was made medially and a motorize shaver was introduced and I performed a lysis of adhesions along with a partial synovectomy medial compartment area. I also used ArthroCare electrocautery to achieve the lysis of adhesions and help with hemostasis. The tibial baseplate and the polyethylene insert appeared stable. There was some mild scar tissue within the notch which I debrided utilizing motorize shaver along with ArthroCare cautery. I now guided the scope into lateral compartment. Again we noted a significant amount of adhesions along with thick reactive synovitis anteriorly. With a motorize shaver I performed a lysis of adhesions as well as a partial synovectomy decompressing the thick reactive synovitis. I'll see 0 ArthroCare cautery to achieve hemostasis as well as help with the lysis of the adhesions. There was good release of all the adhesions there as well as decompression of the synovitis. I now guided the scope into the suprapatellar compartment. I now began began meticulously releasing the adhesions again using motorize shaver as well as the ArthroCare cautery device and then used a motorized shaver and performed a partial synovectomy decompressing thick reactive synovitis. I now took the knee through range of motion. We still lacked about 4 of terminal extension and I was able to achieve about 115 1220 of flexion. Instruments were now removed from the joint. The joint was infiltrated with .25% Marcaine. Steri-Strips were applied to the portal sites. Sterile dressings were applied. The patient was placed into a HELEN hose. No tourniquet was utilized. The patient was awakened, transferred to a bed and taken to recovery stable satisfactory condition.
[2019-05-16] MEDS ORDERED: HYDROmorphone 1 MG/ML 1 ML SYRINGE IVP ONE (11:49)
[2019-05-16 12:10] VITALS: RESP 16
[2019-05-16 12:41] VITALS: BP 111/78; PULSE 89
== END 2019-05-16 12:49 | disposition home or self-care (01) ==
LOC: OR 07:53
PROVIDERS: ATTEND Orthopaedic Surgery
DX: M23.8X1 Other internal derangements of right knee (principal); M65.861 Other synovitis and tenosynovitis, right lower leg; Z96.653 Presence of artificial knee joint, bilateral; M19.90 Unspecified osteoarthritis, unspecified site; K57.92 Diverticulitis of intestine, part unspecified, without perforation or abscess without bleeding; Z79.899 Other long term (current) drug therapy; Z98.890 Other specified postprocedural states; Z87.891 Personal history of nicotine dependence
CPT/HCPCS: 29876; J2250; J1100; J0690; J2001; J3010; J1885; J1170; J2704

== ENCOUNTER → 2019-06-16 | Outpatient (CLI) | payer BC ==
--- NOTE | 2019-06-16 17:16 | MR ---
EXAMINATION TYPE: MR brain wo/w con DATE OF EXAM: 06/16/2019 COMPARISON: 02/09/2019 HISTORY: F/U to tumor resection February 2019 TECHNIQUE: Multiplanar, multisequence images of the brain and brainstem is performed without and with IV contras t, utilizing 9 mL intravenous Gadavist . 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 There is posterior na sopharyngeal mucosal enhancement. There is ethmoid sinus mucosal enhancement. Optic chiasm appears no rmal. There is fluid at the enlarged sella turcica. I see no evidence of definite residual tumor. Pit uitary stalk appears deviated to the left side. There is mucosal thickening in the maxillary sinuses more on the left side. Ventricles have normal size. There is no hydrocephalus. There is no evidence of cerebral edema. Brain stem is intact. There is no evidence of posterior fossa mass. IMPRESSION: There is a large empty sella turcica at the surgery site. There is apparent resection of the large tumor mass without definite residual tumor. Postsurgical changes in the posterior sphenoid sinus at the surgery site consistent with scar tissue. Sphenoid ethmoid and maxillary sinusitis.
== END | disposition home or self-care (01) ==
LOC: RADMRIMAIN 12:45
PROVIDERS: ATTEND Neurological Surgery
DX: J32.0 Chronic maxillary sinusitis (principal); J32.2 Chronic ethmoidal sinusitis; Z98.890 Other specified postprocedural states
CPT/HCPCS: 70553; A9585

== ENCOUNTER → 2022-11-19 | Outpatient (CLI) | payer BC ==
--- NOTE | 2022-11-19 15:02 | XR ---
EXAMINATION TYPE: XR abdomen 2V DATE OF EXAM: 11/19/2022 HISTORY:K59.00. Technique: Upright and supine views of the abdomen were obtained. Comparison: CT abdomen and pelvis 06/16/2018. Findings: There is no convincing evidence of pneumoperitoneum. The Bowel gas pattern is nonspecific and nonobstructive. Mild colonic stool burden. No sizable air-fluid levels are seen. No mass effects are noted. No renal calcifications are identified. IMPRESSION: Nonspecific nonobstructive bowel gas pattern with myoclonic stool burden
== END | disposition home or self-care (01) ==
LOC: RADXRMAIN 14:29
PROVIDERS: ATTEND Nurse Practitioner Family
DX: K59.00 Constipation, unspecified (principal); G25.3 Myoclonus; K57.90 Diverticulosis of intestine, part unspecified, without perforation or abscess without bleeding
CPT/HCPCS: 74019